=== PATIENT | female | born 1955 ===

== ENCOUNTER 2016-10-08 18:59 | Inpatient (IN) | payer MEDICAID ==
[2016-10-08] MEDS ORDERED: Sodium Chloride 0.9% 1,000 ML IV STA (19:53)
[2016-10-08 20:33] LABS: BASO # 0.02 K/mm3 (0.0-2.0); BASO % 0.1 % (0.0-3.0); EOS % 0.1 % (1.5-5.0); GRAN # 13.27 (1.4-6.5); GRAN % 78.9 % (50.0-68.0); HEMOGLOBIN 15.3 gm/dL (12.0-16.0); LYMPH # 2.3 (1.2-3.4); LYMPH % 13.4 % (22.0-35.0); MEAN CORPUSCULAR HEMOGLOBIN 31.7 pg (25.0-35.0); MEAN CORPUSCULAR HGB CONC 35.3 g/dl (31.0-37.0); MEAN PLATELET VOLUME 10.2 fl (7.0-11.0); MONO # 1.3 (0.1-0.6); MONO % 7.5 % (1.0-6.0); PLATELET COUNT 267 10^3/uL (120.0-450.0); RBC 4.82 10^6/uL (3.5-6.1); RED CELL DISTRIBUTION WIDTH 12.4 % (11.5-14.5); WHITE BLOOD COUNT 16.8 10^3/ul (4.5-11.0)
--- NOTE | 2016-10-08 21:20 | ED PDOC ---
Arrival/HPI - General Chief Complaint: Headache Time Seen by Provider: 10/08/16 19:40 Historian: Patient - History of Present Illness Narrative History of Present Illness (Text): 10/08/16 19:50 Mari Pruitt is a 61 year old female, whose past medical history includes cholecystectomy, who presents to the Emergency department complaining of right flank pain. Patient also complaining of associated nausea, fever, and headache since yesterday. Patient denies any chest pain, shortness of breath, vomiting, diarrhea, urinary symptoms, neck pain, dizziness, or any other complaints. Symptom Onset: Gradual Symptom Course: Unchanged Activities at Onset: Rest, Light Context: Home Past Medical History - Provider Review Nursing Documentation Reviewed: Yes - Infectious Disease Hx of Infectious Diseases: None - Tetanus Immunization Tetanus Immunization: Unknown - Cardiac Hx Cardiac Disorders: Yes Hx Hypertension: Yes - Endocrine/Metabolic Hx Endocrine Disorders: Yes Hx Hypothyroidism: Yes - Hematological/Oncological Hx Blood Disorders: No - Integumentary Hx Dermatological Disorder: No - Musculoskeletal/Rheumatological Hx Musculoskeletal Disorders: Yes Hx Arthritis: Yes Hx Osteoporosis: Yes - Gastrointestinal Hx Gastrointestinal Disorders: No - Genitourinary/Gynecological Hx Genitourinary Disorders: No - Psychiatric Hx Psychophysiologic Disorder: No Hx Substance Use: No - Past Surgical History Past Surgical History: No Previous - Surgical History Hx Cholecystectomy: Yes Hx Tubal Ligation: Yes - Anesthesia Hx Anesthesia: No Hx Anesthesia Reactions: No Hx Malignant Hyperthermia: No - Suicidal Assessment Feels Threatened In Home Enviroment: No Family/Social History - Physician Review Nursing Documentation Reviewed: Yes Family/Social History: Unknown Family HX Smoking Status: Never Smoked Hx Alcohol Use: No Hx Substance Use: No Hx Substance Use Treatment: No Allergies/Home Meds Allergies/Adverse Reactions: Allergies Iodinated Contrast- Oral and IV Dye Allergy (Verified 10/08/16 23:17) ANAPHYLAXIS moxifloxacin [From Avelox] Allergy (Verified 10/08/16 19:21) ANAPHYLAXIS Home Medications: Home Meds Medication Instructions Recorded Confirmed Aspirin [Adult Low Dose Aspirin EC] 81 mg PO DAILY 10/08/16 10/08/16 Levothyroxine [Synthroid] 88 mcg PO DAILY 10/08/16 10/08/16 Metoprolol Tartrate [Lopressor] 150 mg PO BID 10/08/16 10/08/16 Ondansetron HCl [Zofran] 4 mg PO Q12H PRN 10/08/16 10/08/16 hydroCHLOROthiazide [Hydrodiuril] 25 mg PO DAILY 10/08/16 10/08/16 Review of Systems - Physician Review All systems were reviewed & negative as marked: Yes - Review of Systems Constitutional: Fevers Eyes: Normal ENT: Normal Respiratory: Normal. absent: SOB, Cough Cardiovascular: Normal. absent: Chest Pain Gastrointestinal: Nausea. absent: Vomiting Genitourinary Female: Normal. absent: Dysuria, Frequency, Hematuria, Urine Output Changes Musculoskeletal: Back Pain. absent: Neck Pain Skin: Normal. absent: Rash Neurological: Headache. absent: Dizziness Endocrine: Normal Hemo/Lymphatic: Normal Psychiatric: Normal Physical Exam Vital Signs Reviewed: Yes Vital Signs Temp Pulse Resp BP Pulse Ox 10/08/16 23:27 88 18 98 10/08/16 23:14 100 F H 96 H 16 99 10/08/16 19:20 100.7 F H 91 H 16 140/90 97 Temperature: Febrile Blood Pressure: Normal Pulse: Regular Respiratory Rate: Normal Appearance: Positive for: Well-Appearing, Non-Toxic, Comfortable Pain Distress: None Mental Status: Positive for: Alert and Oriented X 3 - Systems Exam Head: Present: Atraumatic, Normocephalic Pupils: Present: PERRL Extroacular Muscles: Present: EOMI Conjunctiva: Present: Normal Mouth: Present: Moist Mucous Membranes Neck: Present: Normal Range of Motion Respiratory/Chest: Present: Clear to Auscultation, Good Air Exchange. No: Respiratory Distress, Accessory Muscle Use Cardiovascular: Present: Regular Rate and Rhythm, Normal S1, S2. No: Murmurs Abdomen: Present: Normal Bowel Sounds. No: Tenderness, Distention, Peritoneal Signs Back: Present: Normal Inspection. No: CVA Tenderness, Midline Tenderness, Paraspinal Tenderness Upper Extremity: Present: Normal Inspection. No: Cyanosis, Edema Lower Extremity: Present: Normal Inspection. No: Edema Neurological: Present: GCS=15, CN II-XII Intact, Speech Normal Skin: Present: Warm, Dry, Normal Color. No: Rashes Psychiatric: Present: Alert, Oriented x 3, Normal Insight, Normal Concentration Medical Decision Making ED Course and Treatment: 10/08/16 19:50 Impression: 61 year old female complaining of right flank pain, fever, headache, and nausea. Plan: -- CT Abdomen and Pelvis w/o contrast -- Labs -- Urinalysis, urine cultures -- IV fluids -- Toradol -- Zofran -- Reassess and disposition Progress Notes: 10/08/16 22:32 Reviewed radiology, CT Abdomen and Pelvis shows: 1. Findings compatible with acute diverticulitis of ascending colon. Recommend endoscopy following resolution. 2. Incidental/non-acute findings are described above 10/08/16 22:40 Case discussed with biomedical analytical scientist application chemist, who is aware and agrees with plan. Case discussed with Dr. Reid, who is aware and agrees with plan. Accepts pt in to hospitalist service. Pt will be admitted to [facility] for diverticulitis of the colon. Pt is no acute distress. Discussed results and hospital admission plan with pt, who is aware and verbalizes understanding. - Lab Interpretations Microbiology Results: Microbiology Results 10/08/16 21:20 Urine,Clean Catch Urine Culture - Final No Growth (<1,000 CFU/ML) 10/08/16 22:15 Blood-Venous Blood Culture - Preliminary NO GROWTH AFTER 24 HOURS Lab Results: 10/08/16 19:45 Lab Results 10/08/16 21:20: Urine Color Yellow, Urine Appearance Clear, Urine pH 8.0, Ur Specific Wanda 1.010, Urine Protein Negative, Urine Glucose (UA) Negative, Urine Ketones Negative, Urine Blood Trace-intact H, Urine Nitrate Negative, Urine Bilirubin Negative, Urine Urobilinogen 2.0 H, Ur Leukocyte Esterase Small H, Urine RBC Negative, Urine WBC 2 - 5, Ur Epithelial Cells 1 - 3, Urine Bacteria Few 10/08/16 19:45: WBC 16.8 H D, RBC 4.82, Hgb 15.3, Hct 43.4, MCV 90.0, MCH 31.7, MCHC 35.3, RDW 12.4, Plt Count 267, MPV 10.2, Gran % 78.9 H, Lymph % (Auto) 13.4 L, Irion % (Auto) 7.5 H, Eos % (Auto) 0.1 L, Baso % (Auto) 0.1, Gran # 13.27 H, Lymph # 2.3, Irion # 1.3 H, Eos # 0.0, Baso # 0.02 I have reviewed the lab results: Yes - RAD Interpretation Narrative RAD Interpretations (Text): CT Abdomen and Pelvis shows: Limitations: Motion artifact - mild. Lower thorax: Minimal atelectasis. Small LEFT breast calcification. ABDOMEN: Liver: Fatty infiltration. Gallbladder and bile ducts: Cholecystectomy. No ductal dilation. Pancreas: Unremarkable. No ductal dilation. Spleen: No splenomegaly. Adrenals: No mass. Kidneys and ureters: Probable LEFT renal cyst. Too small to characterize lesion within RIGHT kidney. No renal calculi. No hydronephrosis. Stomach and bowel: Scattered diverticula within colon. Mild mural thickening short segment of ascending colon. [id number] stranding within adjacent fat. No obstruction. Appendix: Normal caliber. No inflammation. PELVIS: Bladder: Unremarkable. No stones. Reproductive: Unremarkable as visualized. ABDOMEN and PELVIS: Intraperitoneal space: No significant fluid collection. No free air. Bones/joints: Probable faint bone island. No acute fracture. Soft tissues: Unremarkable. Vasculature: Minimal atherosclerotic disease. No aneurysm. Lymph nodes: No pathologically enlarged lymph nodes. IMPRESSION: 1. Findings compatible with acute diverticulitis of ascending colon. Recommend endoscopy following resolution. 2. Incidental/non-acute findings are described above Radiology Orders: 10/08/16 19:53 ABD & PELVIS W/O PO OR IV CONT [CT] Stat Aircraft Landing Gear Inspector: Radiologist - Medication Orders Current Medication Orders: Discontinued Medications Aspirin (Ecotrin) 81 mg PO DAILY [facility] Last Admin: 10/10/16 09:39 Dose: 81 mg Hydralazine HCl (Apresoline) 10 mg IVP Q6 PRN PRN Reason: Systolic Blood Pressure Hydrochlorothiazide (Hydrodiuril) 25 mg PO DAILY [facility] Last Admin: 10/10/16 09:39 Dose: 25 mg Sodium Chloride (Sodium Chloride 0.9%) 1,000 mls @ 100 mls/hr IV .Q10H STA Stop: 10/09/16 05:52 Last Admin: 10/08/16 20:33 Dose: 100 mls/hr Metronidazole (Flagyl) 500 mg in 100 mls @ 100 mls/hr IVPB STAT STA PRN Reason: Protocol Stop: 10/08/16 23:38 Last Admin: 10/09/16 00:01 Dose: 100 mls/hr Piperacillin Sod/Tazobactam Sod (Zosyn 3.375 In Ns 100ml) 100 mls @ 200 mls/hr IVPB STAT STA PRN Reason: Protocol Stop: 10/08/16 23:07 Last Admin: 10/08/16 23:13 Dose: 200 mls/hr Metronidazole (Flagyl) 500 mg in 100 mls @ 100 mls/hr IVPB Q8 MIRYAM PRN Reason: Protocol Last Admin: 10/10/16 06:30 Dose: 100 mls/hr Sodium Chloride (Sodium Chloride 0.9%) 1,000 mls @ 100 mls/hr IV .Q10H [facility] Last Admin: 10/09/16 20:00 Dose: 100 mls/hr Ceftriaxone Sodium (Rocephin 1 Gram Ivpb) 1 gm in 100 mls @ 100 mls/hr IVPB DAILY [facility] PRN Reason: Protocol Last Admin: 10/10/16 09:39 Dose: 100 mls/hr Ketorolac Tromethamine (Toradol) 30 mg IVP STAT STA Stop: 10/08/16 19:54 Last Admin: 10/08/16 20:34 Dose: 30 mg Re-Assess: PRISCILLA Pain Assessment Document 10/08/16 23:30 MLS (Rec: 10/09/16 00:20 MLS [id number]) Pain Reassessment Is this a pain reassessment? Yes Sleep Is patient sleeping during reassessment? No Presence of Pain Presence of Pain Yes Pain Scale Used Pain Scale Used Numeric Location Left, Right or Bilateral Right Pain Location Body Site Abdomen Description Description Constant Intensity of Pain at present 5 Levothyroxine Sodium (Synthroid) 88 mcg PO ACB [facility] Last Admin: 10/10/16 08:04 Dose: 88 mcg Metoprolol Tartrate (Lopressor) 150 mg PO BID [facility] Metoprolol Tartrate (Lopressor) 50 mg PO BID [facility] Last Admin: 10/10/16 09:39 Dose: 50 mg Morphine Sulfate (Morphine) 2 mg IVP Q4H PRN PRN Reason: Pain, moderate (4-7) Morphine Sulfate (Morphine) 4 mg IVP Q4H PRN PRN Reason: Pain, severe (8-10) Ondansetron HCl (Zofran Inj) 4 mg IVP STAT STA Stop: 10/08/16 19:54 Last Admin: 10/08/16 20:33 Dose: 4 mg Ondansetron HCl (Zofran Inj) 4 mg IVP Q4H PRN PRN Reason: Nausea/Vomiting Pantoprazole Sodium (Protonix Inj) 40 mg IVP DAILY [facility] Last Admin: 10/10/16 09:40 Dose: 40 mg Potassium Chloride (Potassium Chloride Oral Soln) 40 meq PO ONCE ONE Stop: 10/09/16 00:56 Last Admin: 10/09/16 01:07 Dose: 40 meq Potassium Chloride (K-Dur 20 Meq Er Tab) 40 meq PO STAT STA Stop: 10/09/16 11:11 Last Admin: 10/09/16 11:31 Dose: 40 meq - Scribe Statement The provider has reviewed the documentation as recorded by the Mylesibsteven Lainez All medical record entries made by the Adriano were at my direction and personally dictated by me. I have reviewed the chart and agree that the record accurately reflects my personal performance of the history, physical exam, medical decision making, and the department course for this patient. I have also personally directed, reviewed, and agree with the discharge instructions and disposition. Disposition/Present on Arrival - Present on Arrival Any Indicators Present on Arrival: No History of DVT/PE: No History of Uncontrolled Diabetes: No Urinary Catheter: No History of Decub. Ulcer: No History Surgical Site Infection Following: None - Disposition Have Diagnosis and Disposition been Completed?: Yes Diagnosis: Diverticulitis Disposition: HOSPITALIZED Disposition Time: 22:40 Condition: GOOD
[2016-10-08 21:29] LABS: URINE BILIRUBIN NEGATIVE (NEGATIVE); URINE BLOOD TRACE-INTACT (NEGATIVE); URINE GLUCOSE (UA) NEGATIVE (NEGATIVE); URINE LEUKOCYTE ESTERASE SMALL Leu/uL (NEGATIVE); URINE NITRATE NEGATIVE (NEGATIVE); URINE PROTEIN NEGATIVE mg/dL (<30 mg/dL)
[2016-10-08 21:50] LABS: URINE APPEARANCE CLEAR (CLEAR); URINE COLOR YELLOW (YELLOW)
[2016-10-08 22:04] LABS: URINE BACTERIA FEW (NEG); URINE RBC NEGATIVE /hpf (0-2)
--- NOTE | 2016-10-08 22:32 | CT ---
EXAM: CT Abdomen and Pelvis Without Intravenous Contrast CLINICAL HISTORY: 61 years old, female; Pain; Abdominal pain; Flank; Right; Prior surgery; Surgery type: Cholecystectomy - tubal ligation; Additional info: Rt flank pain TECHNIQUE: Axial computed tomography images of the abdomen and pelvis without intravenous contrast. This CT exam was performed using one or more of the following dose reduction techniques: automated exposure control, adjustment of the mA and/or kV according to patient size, and/or use of iterative reconstruction technique. Coronal and sagittal reformatted images were created and reviewed. COMPARISON: US - ABDOMEN COMPLETE 05/18/2016 10:02:25 AM FINDINGS: Limitations: Motion artifact - mild. Lower thorax: Minimal atelectasis. Small LEFT breast calcification. ABDOMEN: Liver: Fatty infiltration. Gallbladder and bile ducts: Cholecystectomy. No ductal dilation. Pancreas: Unremarkable. No ductal dilation. Spleen: No splenomegaly. Adrenals: No mass. Kidneys and ureters: Probable LEFT renal cyst. Too small to characterize lesion within RIGHT kidney. No renal calculi. No hydronephrosis. Stomach and bowel: Scattered diverticula within colon. Mild mural thickening short segment of ascending colon. [id number] stranding within adjacent fat. No obstruction. Appendix: Normal caliber. No inflammation. PELVIS: Bladder: Unremarkable. No stones. Reproductive: Unremarkable as visualized. ABDOMEN and PELVIS: Intraperitoneal space: No significant fluid collection. No free air. Bones/joints: Probable faint bone island. No acute fracture. Soft tissues: Unremarkable. Vasculature: Minimal atherosclerotic disease. No aneurysm. Lymph nodes: No pathologically enlarged lymph nodes. IMPRESSION: 1. Findings compatible with acute diverticulitis of ascending colon. Recommend endoscopy following resolution. 2. Incidental/non-acute findings are described above.
[2016-10-08] MEDS ORDERED: Piperacillin/Tazobact 3.375 gm 100 ML IVPB STA (22:38)
[2016-10-08] MEDS ORDERED: metroNIDAZOLE IV 500 mg/100 ml 500 MG/100 ML BAG IVPB STA (22:39)
[2016-10-08 23:20] LABS: ALB/GLOB RATIO 1.3 (1.1-1.8); ALBUMIN 4.4 g/dL (3.0-4.8); ALT/SGPT 50 U/L (7-56); AST/SGOT 38 U/L (15-39); BLOOD UREA NITROGEN 10 mg/dL (7-21); CALCIUM 9.7 mg/dL (8.4-10.5); GFR AFRICAN-AMERICAN > 60; GFR NON-AFRICAN AMERICAN > 60
[2016-10-08] MEDS ORDERED: Morphine 2 mg/ml ISec IVP PRN (23:44)
[2016-10-08] MEDS ORDERED: Ciprofloxacin 400mg/200ml D5W 400 MG/200 ML BAG IVPB SCH (23:45)
[2016-10-08] MEDS ORDERED: Morphine 4 mg/ml ISec IVP PRN (23:49)
[2016-10-09] MEDS: Sodium Chloride 0.9% 1,000 ML IV SCH ×3 (00:07→20:00)
[2016-10-09] MEDS: metroNIDAZOLE IV 500 mg/100 ml 500 MG/100 ML BAG IVPB SCH ×4 (00:07→22:37)
[2016-10-09] MEDS ORDERED: Potassium Chloride 40 mEq/30 ml LIQ UD PO ONE (00:55)
[2016-10-09 01:04] VITALS: BMI 28.3
--- NOTE | 2016-10-09 02:21 | CP.PCM.HP ---
Addendum entered and electronically signed by RONAL LAM DO 10/09/16 03:25 : Hypokalemia -K+ was found to be 3.2 -patient refused IV potassium supplementation -given 40meq in oral solution Original Note: <RONAL LAM - Last Filed: 10/09/16 02:37> History of Present Illness - History of Present Illness History of Present Illness: CC: Abdominal Pain HPI: Mrs. Pruitt is a 61 year old estonian speaking female with a past medical history significant for HTN, osteoarthritis, osteoporosis and hypothyroid who presented to the ED for lower quadrant abdominal pain. Patients daughter provided translation for HPI. Patient reports that she has been experiencing the pain since yesterday (10/07) afternoon while she was resting at home. She describes the pain as sharp and localizes it to the lower quadrants bilaterally. She also endorses nausea associated with her pain as well as subjective fever and chills once overnight. She reports that she has been having difficulties with constipation for the past week. She was seen at her PMD's office on Monday and was given "a powder" to help with BM's. She did not take this powder as she had a BM that same day. Her last BM was on the morning of 10/07 and patient reports that it was difficult to pass. She has struggled off and on with constipation in the past as well but has never had this pain before. Patient also reports that she has not had a colonoscopy in the past. In the ED, a CT abdomen/pelvis showed diverticulitis in the ascending colon and she was found to have a WBC of 16.8. Currently, patient reports that the pain is unchanged in both intensity and quality. Patient denies any headache, dizziness, changes in vision, weight loss , chest pain, shortness of breath, vomiting, diarrhea, hematochezia, urinary symptoms, or any other complaints. PMH: HTN, OA, osteoporosis, and hypothyroidism PSH: Cholecystectomy, Tubal ligation FMH: None per patient Social: Denies tobacco, alcohol or illicit drug use and lives at home with her Allergies: Iodine and moxifloxacin Home Meds: HCTZ, Synthroid, Lopressor, and ASA PMD: [place] Present on Admission - Present on Admission Any Indicators Present on Admission: No Review of Systems - Review of Systems Review of Systems: Please refer to HPI Past Patient History - Infectious Disease Hx of Infectious Diseases: None - Tetanus Immunizations Tetanus Immunization: Unknown - Past Social History Smoking Status: Never Smoked - CARDIAC Hx Cardiac Disorders: Yes Hx Hypercholesterolemia: Yes Hx Hypertension: Yes - ENDOCRINE/METABOLIC Hx Endocrine Disorders: Yes Hx Hypothyroidism: Yes - HEMATOLOGICAL/ONCOLOGICAL Hx Blood Disorders: No - INTEGUMENTARY Hx Dermatological Problems: No - MUSCULOSKELETAL/RHEUMATOLOGICAL Hx Musculoskeletal Disorders: Yes Hx Arthritis: Yes Hx Falls: No - GASTROINTESTINAL Hx Gastrointestinal Disorders: No - GENITOURINARY/GYNECOLOGICAL Other/Comment: tubal ligation - PSYCHIATRIC Hx Psychophysiologic Disorder: No Hx Substance Use: No - SURGICAL HISTORY Hx Surgeries: Yes Hx Cholecystectomy: Yes - ANESTHESIA Hx Anesthesia: No Hx Anesthesia Reactions: No Hx Malignant Hyperthermia: No Meds Allergies/Adverse Reactions: Allergies Allergy/AdvReac Type Severity Reaction Status Date / Time Iodinated Contrast- Oral and Allergy ANAPHYLAXIS Verified 10/08/16 23:17 IV Dye moxifloxacin [From Avelox] Allergy ANAPHYLAXIS Verified 10/08/16 19:21 Physical Exam - Constitutional Appears: No Acute Distress - Head Exam Head Exam: NORMAL INSPECTION, NORMOCEPHALIC - Eye Exam Eye Exam: EOMI, Normal appearance - ENT Exam ENT Exam: Mucous Membranes Moist, Normal Exam - Neck Exam Neck exam: Positive for: Full Rom. Negative for: Lymphadenopathy - Respiratory Exam Respiratory Exam: Clear to Auscultation Bilateral, NORMAL BREATHING PATTERN. absent: Rales, Rhonchi, Wheezes, Respiratory Distress - Cardiovascular Exam Cardiovascular Exam: REGULAR RHYTHM, RRR, +S1, +S2. absent: Tachycardia, Systolic Murmur - GI/Abdominal Exam GI & Abdominal Exam: Normal Bowel Sounds, Soft, Tenderness. absent: Distended, Firm, Guarding, Rebound Additional comments: TTP in bilateral lower quadrants - Exam Exam: absent: Bladder Distension - Extremities Exam Extremities exam: Positive for: normal capillary refill, pedal pulses present. Negative for: calf tenderness, pedal edema - Neurological Exam Neurological exam: Alert, Oriented x3 - Psychiatric Exam Psychiatric exam: Normal Affect, Normal Mood - Skin Skin Exam: Dry, Intact, Normal Color, Warm Results - Vital Signs Recent Vital Signs: Last Vital Signs Temp 98.8 F 10/08/16 23:50 Pulse 83 10/08/16 23:50 Resp 20 10/08/16 23:50 BP 145/93 H 10/08/16 23:50 Pulse Ox 98 08/05/17 23:50 - Labs Result Diagrams: 10/08/16 19:45 10/08/16 22:45 Labs: Laboratory Results - last 24 hr 10/08/16 22:45 Sodium 139 Potassium 3.2 L Chloride 98 Carbon Dioxide 27 Anion Gap 17 BUN 10 Creatinine 0.8 Est GFR ( Amer) > 60 Est GFR (Non-Af Amer) > 60 Random Glucose 109 Calcium 9.7 Total Bilirubin 2.5 H AST 38 ALT 50 Alkaline Phosphatase 69 Total Protein 7.8 Albumin 4.4 Globulin 3.4 Albumin/Globulin Ratio 1.3 Assessment & Plan - Assessment and Plan (Free Text) Assessment: 61 year old estonian speaking female with a past medical history significant for HTN, osteoarthritis, osteoporosis and hypothyroid who presented to the ED for lower quadrant abdominal pain Plan: 1. Diverticulitis of Ascending Colon -see CT report -started on Flagyl and Rocephin with noted allergies to Moxifloxacin -Morphine 2mg and 4mg Q4H PRN for moderate and severe pain -IVF: NS at 100mls/hr -NPO Diet; holding all PO medications including home meds -Zofran PRN for N/V -blood cultures pending -cont monitoring leukocytosis with daily CBC's -will recommend colonoscopy 6 weeks after discharge 2. History of HTN -Hydralazine PRN for SBP >165mmHG 3. GI/DVT Prophylaxis -Protonix/scd's Patient seen and case discussed with attending, Dr. Reid. - Date & Time Date: 10/09/16 Time: 12:05 <Jeanette WALKER,Deyvi - Last Filed: 10/10/16 09:28> Results - Vital Signs Recent Vital Signs: Last Vital Signs Temp 99.4 F 10/09/16 17:01 Pulse 90 10/09/16 17:56 Resp 20 10/09/16 17:01 BP 158/99 H 10/09/16 17:56 Pulse Ox 99 10/09/16 17:01 - Labs Result Diagrams: 10/10/16 07:15 10/10/16 07:15 Labs: Laboratory Results - last 24 hr 10/10/16 10/10/16 07:15 07:15 WBC 9.2 D RBC 4.40 Hgb 13.6 Hct 40.4 MCV 91.8 MCH 30.9 MCHC 33.7 RDW 12.5 Plt Count 241 MPV 9.7 Gran % 71.7 H Lymph % (Auto) 20.7 L Carroll % (Auto) 6.2 H Eos % (Auto) 1.2 L Baso % (Auto) 0.2 Gran # 6.59 H Lymph # 1.9 Carroll # 0.6 Eos # 0.1 Baso # 0.02 Sodium 142 Potassium 3.8 Chloride 104 Carbon Dioxide 25 Anion Gap 17 BUN 10 Creatinine 0.8 Est GFR ( Amer) > 60 Est GFR (Non-Af Amer) > 60 Random Glucose 78 Calcium 9.6 Total Bilirubin 1.5 H AST 34 ALT 40 Alkaline Phosphatase 64 Total Protein 7.4 Albumin 4.2 Globulin 3.2 Albumin/Globulin Ratio 1.3 Attending/Attestation - Attestation I have personally seen and examined this patient.: Yes I have fully participated in the care of the patient.: Yes I have reviewed all pertinent clinical information: Yes Notes (Text): -I agree with the above H&P completed by the resident physician with the following additions and/or changes: The patient is a 61 year old woman with a history of HTN and OA, who is admitted for acute diverticulitis. She will receive empiric IV Ceftriaxone and Flagyl. She will also be kept NPO (with IVF's) for bowel rest. We will use PRN IV Hydralazine for BP control while the patient remains NPO.
[2016-10-09 06:46] LABS: ALB/GLOB RATIO 1.3 (1.1-1.8); ALT/SGPT 50 U/L (7-56); AST/SGOT 31 U/L (15-39); BLOOD UREA NITROGEN 11 mg/dL (7-21); CALCIUM 8.9 mg/dL (8.4-10.5); GFR AFRICAN-AMERICAN > 60; GFR NON-AFRICAN AMERICAN > 60
[2016-10-09 06:48] LABS: BASO # 0.01 K/mm3 (0.0-2.0); BASO % 0.1 % (0.0-3.0); EOS # 0.1 (0.0-0.7); EOS % 0.4 % (1.5-5.0); GRAN # 8.75 (1.4-6.5); GRAN % 72.9 % (50.0-68.0); HEMOGLOBIN 13.3 gm/dL (12.0-16.0); LYMPH # 2.2 (1.2-3.4); LYMPH % 18.3 % (22.0-35.0); MEAN CELL VOLUME 91.4 fL (80.0-105.0); MEAN CORPUSCULAR HGB CONC 33.9 g/dl (31.0-37.0); MEAN PLATELET VOLUME 9.7 fl (7.0-11.0); MONO % 8.3 % (1.0-6.0); PLATELET COUNT 227 10^3/uL (120.0-450.0); RBC 4.29 10^6/uL (3.5-6.1); RED CELL DISTRIBUTION WIDTH 12.5 % (11.5-14.5)
[2016-10-09] MEDS: cefTRIAXone 1 gm 1 GM/100 ML BAG IVPB SCH (10:20)
[2016-10-09] MEDS ORDERED: Potassium Chloride 20 mEq ER Tab PO STA (11:10)
[2016-10-09] MEDS ORDERED: Levothyroxine 100 MCG TAB PO SCH (13:15)
[2016-10-09 17:02] VITALS: RESP 20; TEMP 99.4; O2SAT 99
[2016-10-10] MEDS: metroNIDAZOLE IV 500 mg/100 ml 500 MG/100 ML BAG IVPB SCH (06:30)
[2016-10-10] MEDS ORDERED: Levothyroxine 88 MCG TAB PO SCH (07:30)
[2016-10-10 07:43] LABS: BASO # 0.02 K/mm3 (0.0-2.0); BASO % 0.2 % (0.0-3.0); EOS # 0.1 (0.0-0.7); EOS % 1.2 % (1.5-5.0); GRAN # 6.59 (1.4-6.5); GRAN % 71.7 % (50.0-68.0); HEMOGLOBIN 13.6 gm/dL (12.0-16.0); LYMPH # 1.9 (1.2-3.4); LYMPH % 20.7 % (22.0-35.0); MEAN CELL VOLUME 91.8 fL (80.0-105.0); MEAN CORPUSCULAR HEMOGLOBIN 30.9 pg (25.0-35.0); MEAN CORPUSCULAR HGB CONC 33.7 g/dl (31.0-37.0); MEAN PLATELET VOLUME 9.7 fl (7.0-11.0); MONO # 0.6 (0.1-0.6); MONO % 6.2 % (1.0-6.0); PLATELET COUNT 241 10^3/uL (120.0-450.0); RED CELL DISTRIBUTION WIDTH 12.5 % (11.5-14.5); WHITE BLOOD COUNT 9.2 10^3/ul (4.5-11.0)
[2016-10-10 08:04] LABS: ALB/GLOB RATIO 1.3 (1.1-1.8); ALBUMIN 4.2 g/dL (3.0-4.8); ALT/SGPT 40 U/L (7-56); AST/SGOT 34 U/L (15-39); BLOOD UREA NITROGEN 10 mg/dL (7-21); CALCIUM 9.6 mg/dL (8.4-10.5); GFR AFRICAN-AMERICAN > 60; GFR NON-AFRICAN AMERICAN > 60
[2016-10-10] MEDS: cefTRIAXone 1 gm 1 GM/100 ML BAG IVPB SCH (09:39)
[2016-10-10 09:44] VITALS: BP 142/95; PULSE 69
--- NOTE | 2016-10-10 11:55 | CP.PCM.DIS ---
<Azalia Munoz - Last Filed: 10/10/16 16:08> Provider - Provider Date of Admission: 10/08/16 22:39 Attending physician: Kishor Singer MD Primary care physician: Xiomy Negron DO Time Spent in preparation of Discharge (in minutes): 31 Diagnosis - Discharge Diagnosis (1) Diverticulitis Status: Acute Hospital Course - Lab Results Lab Results: Micro Results 10/08/16 22:45 Blood-Venous Blood Culture - Preliminary NO GROWTH AFTER 24 HOURS Most Recent Lab Values WBC 9.2 10^3/ul (4.5-11.0) D 10/10/16 07:15 RBC 4.40 10^6/uL (3.5-6.1) 10/10/16 07:15 Hgb 13.6 gm/dL (12.0-16.0) 10/10/16 07:15 Hct 40.4 % (36.0-48.0) 10/10/16 07:15 MCV 91.8 fL (80.0-105.0) 10/10/16 07:15 MCH 30.9 pg (25.0-35.0) 10/10/16 07:15 MCHC 33.7 g/dl (31.0-37.0) 10/10/16 07:15 RDW 12.5 % (11.5-14.5) 10/10/16 07:15 Plt Count 241 10^3/uL (120.0-450.0) 10/10/16 07:15 MPV 9.7 fl (7.0-11.0) 10/10/16 07:15 Gran % 71.7 % (50.0-68.0) H 10/10/16 07:15 Lymph % (Auto) 20.7 % (22.0-35.0) L 10/10/16 07:15 [place] % (Auto) 6.2 % (1.0-6.0) H 10/10/16 07:15 Eos % (Auto) 1.2 % (1.5-5.0) L 10/10/16 07:15 Baso % (Auto) 0.2 % (0.0-3.0) 10/10/16 07:15 Gran # 6.59 (1.4-6.5) H 10/10/16 07:15 Lymph # 1.9 (1.2-3.4) 10/10/16 07:15 [place] # 0.6 (0.1-0.6) 10/10/16 07:15 Eos # 0.1 (0.0-0.7) 10/10/16 07:15 Baso # 0.02 K/mm3 (0.0-2.0) 10/10/16 07:15 Sodium 142 mmol/L (132-148) 10/10/16 07:15 Potassium 3.8 mmol/L (3.6-5.0) 10/10/16 07:15 Chloride 104 mmol/L (98-107) 10/10/16 07:15 Carbon Dioxide 25 mmol/L (21-33) 10/10/16 07:15 Anion Gap 17 (10-20) 10/10/16 07:15 BUN 10 mg/dL (7-21) 10/10/16 07:15 Creatinine 0.8 mg/dL (0.5-1.4) 10/10/16 07:15 Est GFR ( Amer) > 60 10/10/16 07:15 Est GFR (Non-Af Amer) > 60 10/10/16 07:15 Random Glucose 78 mg/dL (70-110) 10/10/16 07:15 Calcium 9.6 mg/dL (8.4-10.5) 10/10/16 07:15 Total Bilirubin 1.5 mg/dL (0.2-1.3) H 10/10/16 07:15 AST 34 U/L (15-39) 10/10/16 07:15 ALT 40 U/L (7-56) 10/10/16 07:15 Alkaline Phosphatase 64 U/L (38-133) 10/10/16 07:15 Total Protein 7.4 g/dL (5.8-8.3) 10/10/16 07:15 Albumin 4.2 g/dL (3.0-4.8) 10/10/16 07:15 Globulin 3.2 gm/dL 10/10/16 07:15 Albumin/Globulin Ratio 1.3 (1.1-1.8) 10/10/16 07:15 Urine Color Yellow (YELLOW) 10/08/16 21:20 Urine Appearance Clear (CLEAR) 10/08/16 21:20 Urine pH 8.0 (4.7-8.0) 10/08/16 21:20 Ur Specific [place] 1.010 (1.005-1.035) 10/08/16 21:20 Urine Protein Negative mg/dL (<30 mg/dL) 10/08/16 21:20 Urine Glucose (UA) Negative mg/dL (NEGATIVE) 10/08/16 21:20 Urine Ketones Negative mg/dL (NEGATIVE) 10/08/16 21:20 Urine Blood Trace-intact (NEGATIVE) H 10/08/16 21:20 Urine Nitrate Negative (NEGATIVE) 10/08/16 21:20 Urine Bilirubin Negative (NEGATIVE) 10/08/16 21:20 Urine Urobilinogen 2.0 E.U./dL (<1 E.U./dL) H 10/08/16 21:20 Ur Leukocyte Esterase Small Cirilo/uL (NEGATIVE) H 10/08/16 21:20 Urine RBC Negative /hpf (0-2) 10/08/16 21:20 Urine WBC 2 - 5 /hpf (0-6) 10/08/16 21:20 Ur Epithelial Cells 1 - 3 /hpf (0-5) 10/08/16 21:20 Urine Bacteria Few (NEG) 10/08/16 21:20 - Hospital Course Hospital Course: 61 year old female with a past medical history significant for HTN, osteoarthritis, osteoporosis and hypothyroid who presented to the ED for lower quadrant abdominal pain. Patients daughter provided translation for HPI. Patient reports that she has been experiencing the pain since yesterday (10/07) afternoon while she was resting at home. She describes the pain as sharp and localizes it to the lower quadrants bilaterally. She also endorses nausea associated with her pain as well as subjective fever and chills once overnight. She reports that she has been having difficulties with constipation for the past week. She was seen at her PMD's office on Monday and was given "a powder" to help with BM's. She did not take this powder as she had a BM that same day. Her last BM was on the morning of 10/07 and patient reports that it was difficult to pass. She has struggled off and on with constipation in the past as well but has never had this pain before. Patient also reports that she has not had a colonoscopy in the past. In the ED, a CT abdomen/pelvis showed diverticulitis in the ascending colon and she was found to have a WBC of 16.8. Patient was admitted for observation. Patient was started on Rocephin and IV flagyl with IV fluid hydration. Diet was advanced as tolerated. Labs were monitored, WBC normalized. Patient was initially hypokalemic, K+ was repleted. For HTN, patient was on HCTZ and Metoprolol 50mg BID. Patient was started on her home dose of Synthroid for hypothyroidism. Urine cx and Blood cx were negative. Patient was medically stable on day of discharge. She reported that her symptoms had improved, tolerated regular diet, and had a BM. Patient was discharged on PO augmentin x 10 days. Patient to follow up with PMD and GI within 1 week. Will need outpatient colonoscopy in 6 weeks. All questions and concerns were addressed. Discharge Exam - Head Exam Head Exam: NORMAL INSPECTION, NORMOCEPHALIC - Eye Exam Eye Exam: EOMI, Normal appearance Pupil Exam: NORMAL ACCOMODATION - ENT Exam ENT Exam: Mucous Membranes Moist - Neck Exam Neck exam: Full Rom - Respiratory Exam Respiratory Exam: Clear to PA & Lateral, NORMAL BREATHING PATTERN. absent: Rales, Rhonchi, Wheezes - Cardiovascular Exam Cardiovascular Exam: REGULAR RHYTHM, +S1, +S2 - GI/Abdominal Exam GI & Abdominal Exam: Normal Bowel Sounds, Soft, Tenderness. absent: Firm, Rebound, Rigid Additional comments: RLQ tenderness to palpation - Extremities Exam Extremities exam: pedal pulses present - Neurological Exam Neurological exam: Alert, CN II-XII Intact, Oriented x3 - Psychiatric Exam Psychiatric exam: Normal Affect, Normal Mood - Skin Skin Exam: Normal Color, Warm Discharge Plan - Discharge Medications Prescriptions: Amoxicillin/Clavulanate [Augmentin 875 MG-125 MG] 1 tab PO BID #20 tab - Follow Up Plan Condition: GOOD Disposition: HOME/ ROUTINE Instructions: Diverticulosis (DC) Additional Instructions: Patient is clear for discharge home. Patient to take Augmentin PO BID x 10 days , Follow up with PMD within 1 week. Will need outpatient referral for GI to schedule colonoscopy in 6 weeks. Referrals: Xiomy Negron DO [Primary Care Provider] - <Kishor Singer - Last Filed: 10/10/16 17:05> Provider - Provider Date of Admission: 10/08/16 22:39 Attending physician: Kishor Singer MD [facility] - Lab Results Lab Results: Micro Results 10/08/16 22:45 Blood-Venous Blood Culture - Preliminary NO GROWTH AFTER 24 HOURS Most Recent Lab Values WBC 9.2 10^3/ul (4.5-11.0) D 10/10/16 07:15 RBC 4.40 10^6/uL (3.5-6.1) 10/10/16 07:15 Hgb 13.6 gm/dL (12.0-16.0) 10/10/16 07:15 Hct 40.4 % (36.0-48.0) 10/10/16 07:15 MCV 91.8 fL (80.0-105.0) 10/10/16 07:15 MCH 30.9 pg (25.0-35.0) 10/10/16 07:15 MCHC 33.7 g/dl (31.0-37.0) 10/10/16 07:15 RDW 12.5 % (11.5-14.5) 10/10/16 07:15 Plt Count 241 10^3/uL (120.0-450.0) 10/10/16 07:15 MPV 9.7 fl (7.0-11.0) 10/10/16 07:15 Gran % 71.7 % (50.0-68.0) H 10/10/16 07:15 Lymph % (Auto) 20.7 % (22.0-35.0) L 10/10/16 07:15 [place] % (Auto) 6.2 % (1.0-6.0) H 10/10/16 07:15 Eos % (Auto) 1.2 % (1.5-5.0) L 10/10/16 07:15 Baso % (Auto) 0.2 % (0.0-3.0) 10/10/16 07:15 Gran # 6.59 (1.4-6.5) H 10/10/16 07:15 Lymph # 1.9 (1.2-3.4) 10/10/16 07:15 [place] # 0.6 (0.1-0.6) 10/10/16 07:15 Eos # 0.1 (0.0-0.7) 10/10/16 07:15 Baso # 0.02 K/mm3 (0.0-2.0) 10/10/16 07:15 Sodium 142 mmol/L (132-148) 10/10/16 07:15 Potassium 3.8 mmol/L (3.6-5.0) 10/10/16 07:15 Chloride 104 mmol/L (98-107) 10/10/16 07:15 Carbon Dioxide 25 mmol/L (21-33) 10/10/16 07:15 Anion Gap 17 (10-20) 10/10/16 07:15 BUN 10 mg/dL (7-21) 10/10/16 07:15 Creatinine 0.8 mg/dL (0.5-1.4) 10/10/16 07:15 Est GFR ( Amer) > 60 10/10/16 07:15 Est GFR (Non-Af Amer) > 60 10/10/16 07:15 Random Glucose 78 mg/dL (70-110) 10/10/16 07:15 Calcium 9.6 mg/dL (8.4-10.5) 10/10/16 07:15 Total Bilirubin 1.5 mg/dL (0.2-1.3) H 10/10/16 07:15 AST 34 U/L (15-39) 10/10/16 07:15 ALT 40 U/L (7-56) 10/10/16 07:15 Alkaline Phosphatase 64 U/L (38-133) 10/10/16 07:15 Total Protein 7.4 g/dL (5.8-8.3) 10/10/16 07:15 Albumin 4.2 g/dL (3.0-4.8) 10/10/16 07:15 Globulin 3.2 gm/dL 10/10/16 07:15 Albumin/Globulin Ratio 1.3 (1.1-1.8) 10/10/16 07:15 Urine Color Yellow (YELLOW) 10/08/16 21:20 Urine Appearance Clear (CLEAR) 10/08/16 21:20 Urine pH 8.0 (4.7-8.0) 10/08/16 21:20 Ur Specific [place] 1.010 (1.005-1.035) 10/08/16 21:20 Urine Protein Negative mg/dL (<30 mg/dL) 10/08/16 21:20 Urine Glucose (UA) Negative mg/dL (NEGATIVE) 10/08/16 21:20 Urine Ketones Negative mg/dL (NEGATIVE) 10/08/16 21:20 Urine Blood Trace-intact (NEGATIVE) H 10/08/16 21:20 Urine Nitrate Negative (NEGATIVE) 10/08/16 21:20 Urine Bilirubin Negative (NEGATIVE) 10/08/16 21:20 Urine Urobilinogen 2.0 E.U./dL (<1 E.U./dL) H 10/08/16 21:20 Ur Leukocyte Esterase Small Cirilo/uL (NEGATIVE) H 10/08/16 21:20 Urine RBC Negative /hpf (0-2) 10/08/16 21:20 Urine WBC 2 - 5 /hpf (0-6) 10/08/16 21:20 Ur Epithelial Cells 1 - 3 /hpf (0-5) 10/08/16 21:20 Urine Bacteria Few (NEG) 10/08/16 21:20 Attending/Attestation - Attestation I have personally seen and examined this patient.: Yes I have fully participated in the care of the patient.: Yes I have reviewed all pertinent clinical information, including history, physical exam and plan: Yes Notes (Text): 10/10/16 17:03 61 year old female with past medical history of hypertension and hypothyroidism who is admitted with diverticulitis. She was started on analgesics and antibiotics. Her symptoms improved and her diet was advanced. Her leukocytosis has improved. Patient is discharged home to follow up with her PMD. Continue with antibiotics as prescribed. Recommended elective colonoscopy in 6 weeks. Kishor Singer MD Hospitalist.
== END 2016-10-10 13:38 | disposition home or self-care (01) | DRG 182 ==
LOC: ED 18:59 → ERH 22:39 → 3RNO 23:34
PROVIDERS: ADMIT Internal Medicine; ATTEND Internal Medicine
DX: K57.32 Diverticulitis of large intestine without perforation or abscess without bleeding (principal); D72.829 Elevated white blood cell count, unspecified; E87.6 Hypokalemia; I10 Essential (primary) hypertension; E03.9 Hypothyroidism, unspecified; M81.0 Age-related osteoporosis without current pathological fracture; M19.90 Unspecified osteoarthritis, unspecified site; K59.00 Constipation, unspecified; Z79.82 Long term (current) use of aspirin; Z90.49 Acquired absence of other specified parts of digestive tract

== ENCOUNTER 2017-03-21 08:30 | Emergency (ER) | payer MEDICAID ==
[2017-03-21 09:02] VITALS: TEMP 101.7; O2SAT 100; BMI 27.8
[2017-03-21] MEDS ORDERED: DiphenhydrAMINE 50 mg/ml Inj IVP STA (09:15)
[2017-03-21] MEDS ORDERED: Sodium Chloride 0.9% 500 ML IV STA ×2 (09:16→10:29)
--- NOTE | 2017-03-21 09:38 | ED PDOC ---
Arrival/HPI <Lona Craig - Last Filed: 03/21/17 13:18> <Susi Yee - Last Filed: 03/21/17 22:10> - General Chief Complaint: Abdominal Pain Time Seen by Provider: 03/21/17 09:12 - History of Present Illness Narrative History of Present Illness (Text): 03/21/17 09:38 62F presents with 3 day history of abdominal pain, nausea, body aches, headache. Patient vomited yellow phelgm 2 times today. Patient also admits to a non-productive cough. Patient states the pain is in mid-epigastric region and also in upper quadrants. PMH: HLD, HTN, Hypothyroidism PSH: Cholecystectomy (8 years ago) Social history: lives with family at home. No smoking, no ETOH use, no illicit drugs (Lona Craig) Past Medical History - Infectious Disease Hx of Infectious Diseases: None - Tetanus Immunization Tetanus Immunization: Unknown - Cardiac Hx Cardiac Disorders: Yes Hx Hypertension: Yes - Pulmonary Hx Respiratory Disorders: No - Neurological Hx Neurological Disorder: No - HEENT Hx HEENT Disorder: No - Renal Hx Renal Disorder: No - Endocrine/Metabolic Hx Endocrine Disorders: Yes Hx Hypothyroidism: Yes - Hematological/Oncological Hx Blood Disorders: No - Integumentary Hx Dermatological Disorder: No - Musculoskeletal/Rheumatological Hx Musculoskeletal Disorders: Yes Hx Arthritis: Yes Hx Osteoporosis: Yes - Gastrointestinal Hx Gastrointestinal Disorders: No - Genitourinary/Gynecological Hx Genitourinary Disorders: No - Psychiatric Hx Psychophysiologic Disorder: No Hx Substance Use: No - Past Surgical History Past Surgical History: No Previous - Surgical History Hx Cholecystectomy: Yes Hx Tubal Ligation: Yes - Anesthesia Hx Anesthesia: No Hx Anesthesia Reactions: No Hx Malignant Hyperthermia: No - Suicidal Assessment Feels Threatened In Home Enviroment: No <Lona Craig - Last Filed: 03/21/17 13:18> Family/Social History Family/Social History: Unknown Family HX Smoking Status: Never Smoked Hx Alcohol Use: No Hx Substance Use: No Hx Substance Use Treatment: No <Lona Craig - Last Filed: 03/21/17 13:18> Allergies/Home Meds <Lona Craig - Last Filed: 03/21/17 13:18> <Susi Yee - Last Filed: 03/21/17 22:10> Allergies/Adverse Reactions: Allergies Iodinated Contrast- Oral and IV Dye Allergy (Verified 03/21/17 09:08) ANAPHYLAXIS moxifloxacin [From Avelox] Allergy (Verified 03/21/17 09:08) ANAPHYLAXIS Home Medications: Home Meds Medication Instructions Recorded Confirmed Aspirin [Adult Low Dose Aspirin EC] 81 mg PO DAILY 10/08/16 03/21/17 Levothyroxine [Synthroid] 88 mcg PO DAILY 10/08/16 03/21/17 Metoprolol Tartrate [Lopressor] 150 mg PO BID 10/08/16 03/21/17 hydroCHLOROthiazide [Hydrodiuril] 25 mg PO DAILY 10/08/16 03/21/17 Meclizine [Antivert] 25 mg PO BID 03/21/17 03/21/17 Ondansetron HCl [Zofran] 4 mg PO Q12 PRN 03/21/17 03/21/17 Review of Systems - Review of Systems Constitutional: Fatigue Eyes: absent: Vision Changes, Photophobia, Eye Pain ENT: absent: Hearing Changes, Tinnitus, TMJ Pain Respiratory: Cough. absent: SOB, Sputum Cardiovascular: absent: Chest Pain, Palpitations, Edema Gastrointestinal: Abdominal Pain, Nausea, Vomiting. absent: Stool Changes, Constipation, Diarrhea, Hematochezia, Hematemesis, Anorexia, Food Intolerance Musculoskeletal: Normal. absent: Joint Swelling, Myalgias Skin: Normal. absent: Rash, Pruritis, Skin Lesions Neurological: Headache. absent: Dizziness, Focal Weakness Endocrine: absent: Diaphoresis, Polyuria, Polydipsia Psychiatric: absent: Anxiety, Depression, Suicidal Ideation <Eng,Lona - Last Filed: 03/21/17 13:18> Physical Exam Temperature: Febrile Blood Pressure: Hypertensive Pulse: Regular Respiratory Rate: Normal Appearance: Positive for: Uncomfortable Pain Distress: Moderate Mental Status: Positive for: Alert and Oriented X 3. No: Confused, Agitated, Lethargic - Systems Exam Head: Present: Atraumatic, Normocephalic Pupils: Present: PERRL Extroacular Muscles: Present: EOMI Conjunctiva: Present: Normal Ears: Present: Normal. No: Erythema Mouth: Present: Moist Mucous Membranes Nose (External): Present: Atraumatic. No: Abrasion, Contusion, Laceration Nose (Internal): Present: Normal Inspection. No: No Active Bleeding, Moist, Engorged Neck: Present: Normal Range of Motion. No: JVD, Lymphadenopathy Respiratory/Chest: Present: Clear to Auscultation. No: Respiratory Distress, Accessory Muscle Use Cardiovascular: Present: Regular Rate and Rhythm, Normal S1, S2. No: Murmurs Abdomen: Present: Tenderness, Guarding. No: Peritoneal Signs, Rebound, McBurney 's Point Tender, Rovsing's Sign Present Upper Extremity: Present: Normal Inspection, Capillary Refill < 2s. No: Edema Lower Extremity: Present: Normal Inspection, Capillary Refill < 2 s. No: Edema Skin: Present: Warm, Dry, Normal Color. No: Rashes Psychiatric: Present: Alert, Oriented x 3, Normal Insight <Lona Craig - Last Filed: 03/21/17 13:18> Vital Signs Temp Pulse Resp BP Pulse Ox 03/21/17 13:00 79 18 148/89 100 03/21/17 11:47 87 18 153/94 H 100 03/21/17 11:12 88 18 151/88 H 100 03/21/17 09:01 101.7 F H 90 19 162/93 H 100 Medical Decision Making Re-evaluation Time: 13:18 Reassessment Condition: Re-examined, Improved - Lab Interpretations I have reviewed the lab results: Yes Interpretation: Abnormal lab values (lactate 2.2, f/u repeat lactate) - RAD Interpretation Nutrition Internship: ED Physician, Radiologist - EKG Interpretation Interpreted by ED Physician: Yes Type: 12 lead EKG <Lona Craig - Last Filed: 03/21/17 13:18> <Susi Yee - Last Filed: 03/21/17 22:10> ED Course and Treatment: 03/21/17 11:27 CXR EKG CBC CMP VBG shock and repeat Abdominal CXR for obstruction 03/21/17 11:32 03/21/17 13:19 03/21/17 13:19 Patient re-examined, symptoms of nausea resolved after maalox, zofran, pepcid, fluid bolus (1L). Patient ate bread and drank berto evelyn without issues. patient to be discharged home 20 mg Pepcid bid #40 zofran odt #9 [id number] q8h x3 days (Kiara,Lona) 03/21/17 10:04 Mari Pruitt is a 62 year old female who presents today to the emergency department complaining of abdominal pain, nausea, headache, and body aches. In agreement with resident note, which includes further HPI details. Patient was seen and evaluated with resident, came up with plan and treatment together. (Susi Yee) - Lab Interpretations Lab Results: 03/21/17 09:20 03/21/17 09:20 Lab Results 03/21/17 13:00: pO2 75 H, VBG pH 7.38, VBG pCO2 45.0, VBG HCO3 26.6, VBG Total CO2 28.0, VBG O2 Sat (Calc) 97.7 H, VBG Base Excess 1.0, VBG Potassium 3.6, Sodium 138.0, Chloride 101.0, Glucose 122 H, Lactate 2.2 H, FiO2 21.0, Venous Blood Potassium 3.6 03/21/17 12:00: Urine Color Yellow, Urine Appearance Clear, Urine pH 8.0, Ur Specific [place] 1.015, Urine Protein Trace H, Urine Glucose (UA) Negative, Urine Ketones 15 H, Urine Blood Negative, Urine Nitrate Negative, Urine Bilirubin Negative, Urine Urobilinogen 2.0 H, Ur Leukocyte Esterase Negative, Urine RBC 0 - 2, Urine WBC 1 - 3, Ur Epithelial Cells 3 - 4 03/21/17 09:20: pO2 31, VBG pH 7.43, VBG pCO2 46.0, VBG HCO3 30.5 H, VBG Total CO2 31.9 H, VBG O2 Sat (Calc) 69.5 H, VBG Base Excess 5.3 H, VBG Potassium 3.3 L , Sodium 136.0, Chloride 99.0, Glucose 103, Lactate 2.2 H, FiO2 21.0, Venous Blood Potassium 3.3 L 03/21/17 09:20: Sodium 138, Chloride 95 L, Potassium 3.2 L, Carbon Dioxide 27, Anion Gap 19, BUN 12, Creatinine 0.9, Est GFR ( Amer) > 60, Est GFR (Non- Af Amer) > 60, Random Glucose 101, Calcium 10.4, Total Bilirubin 1.7 H, AST 61 H , ALT 66 H, Alkaline Phosphatase 84, Lactate Dehydrogenase 539, Total Creatine Kinase 61, Troponin I < 0.01, Total Protein 9.0 H, Albumin 5.1 H, Globulin 3.9, Albumin/Globulin Ratio 1.3, Triglycerides 180 H, Cholesterol 230 H, LDL Cholesterol Direct 135 H, HDL Cholesterol 41, Amylase 50, Lipase 57 03/21/17 09:20: PT 12.2, INR 1.06, APTT 30.5 03/21/17 09:20: WBC 8.6, RBC 5.14, Hgb 15.8, Hct 46.0, MCV 89.5, MCH 30.7, MCHC 34.3, RDW 12.3, Plt Count 234, MPV 9.8, Gran % 81.7 H, Lymph % (Auto) 9.3 L, [place] % (Auto) 8.3 H, Eos % (Auto) 0.5 L, Baso % (Auto) 0.2, Gran # 6.99 H, Lymph # 0.8 L, [place] # 0.7 H, Eos # 0.0, Baso # 0.02 - RAD Interpretation Radiology Orders: 03/21/17 09:12 ABD 2 VIEWS (FLAT/UP OR DECUB) [RAD] Stat 03/21/17 09:13 CHEST PORTABLE [RAD] Stat - Medication Orders Current Medication Orders: Discontinued Medications Acetaminophen (Tylenol 325mg Tab) 975 mg PO STAT STA Stop: 03/21/17 09:17 Last Admin: 03/21/17 09:42 Dose: 975 mg MAR Pain/Vitals Document 03/21/17 09:42 SF (Rec: 03/21/17 09:42 SF [id number] Pain Reassessment Is This A Pain ReAssessment? Yes Sleep Is patient sleeping during reassessment? No Presence of Pain Presence of Pain Yes Pain Scale Used Pain Scale Used Numeric Location Pain Location Body Site Abdomen Al Hydrox/Mg Hydrox/Simethicone (Maalox Plus 30 Ml) 30 ml PO STAT STA Stop: 03/21/17 11:32 Last Admin: 03/21/17 11:50 Dose: 30 ml Diphenhydramine HCl (Benadryl) 25 mg IVP STAT STA Stop: 03/21/17 09:16 Last Admin: 03/21/17 09:41 Dose: 25 mg IVP Administration Document 03/21/17 09:41 SF (Rec: 03/21/17 09:41 SF [email or web address] Charges for Administration # of IVP Administrations 1 Famotidine (Pepcid) 20 mg IVP STAT STA Stop: 03/21/17 11:32 Last Admin: 03/21/17 11:51 Dose: 20 mg IVP Administration Document 03/21/17 11:51 HI (Rec: 03/21/17 11:51 HI [id number]) Charges for Administration # of IVP Administrations 1 Sodium Chloride (Sodium Chloride 0.9%) 500 mls @ 999 mls/hr IV .Q31M STA Stop: 03/21/17 09:46 Last Admin: 03/21/17 09:44 Dose: 999 mls/hr eMAR Start Stop Document 03/21/17 09:44 SF (Rec: 03/21/17 09:44 [id number]) Intravenous Solution Start Date 03/21/17 Start Time 09:44 End Date 03/21/17 End time 10:15 Total Infusion Time 31 Metoclopramide HCl 20 mg/ (Sodium Chloride) 54 mls @ 108 mls/hr IVP .Q30M ONE Stop: 03/21/17 10:29 Last Admin: 03/21/17 09:42 Dose: 108 mls/hr IVP Administration Document 03/21/17 09:42 SF (Rec: 03/21/17 09:42 SF [email or web address] Charges for Administration # of IVP Administrations 1 Sodium Chloride (Sodium Chloride 0.9%) 500 mls @ 999 mls/hr IV .Q31M STA Stop: 03/21/17 10:59 Last Admin: 03/21/17 10:30 Dose: 999 mls/hr eMAR Start Stop Document 03/21/17 10:30 SF (Rec: 03/21/17 11:55 [email or web address]) Intravenous Solution Start Date 03/21/17 Start Time 10:30 End Date 03/21/17 End time 11:00 Total Infusion Time 30 Magnesium Sulfate/Dextrose (Magnesium Sulfate 1 Gm/100 Ml D5w) 1 gm in 100 mls @ 100 mls/hr IVPB ONCE ONE Stop: 03/21/17 11:40 Last Admin: 03/21/17 11:51 Dose: 100 mls/hr eMAR Start Stop Document 03/21/17 11:51 HI (Rec: 03/21/17 11:51 HI [id number]) Intravenous Solution Start Date 03/21/17 Start Time 11:51 Ondansetron HCl (Zofran Inj) 4 mg IVP STAT STA Stop: 03/21/17 11:54 Last Admin: 03/21/17 12:14 Dose: 4 mg IVP Administration Document 03/21/17 12:14 HI (Rec: 03/21/17 12:15 DC [id number]) Charges for Administration # of IVP Administrations 1 Potassium Chloride (Potassium Chloride Oral Soln) 40 meq PO STAT STA Stop: 03/21/17 10:42 Last Admin: 03/21/17 11:50 Dose: 40 meq - PA / [employer]PLE [employer]ING [employer]PERVISOR / Resident Statement / has reviewed & agrees with the documentation as recorded. <Susi Yee - Last Filed: 03/21/17 22:10> Disposition/Present on Arrival - Present on Arrival Any Indicators Present on Arrival: No History of DVT/PE: No History of Uncontrolled Diabetes: No Urinary Catheter: No History of Decub. Ulcer: No History Surgical Site Infection Following: None - Disposition Have Diagnosis and Disposition been Completed?: Yes Disposition Time: 13:25 Patient Plan: Discharge <Lona Craig - Last Filed: 03/21/17 13:18> <Susi Yee - Last Filed: 03/21/17 22:10> - Disposition Diagnosis: Gastroenteritis Disposition: HOME/ ROUTINE Condition: FAIR Print Language: AFGHAN Additional Instructions: increase daily fluid intake, take medications as directed return to ED if symptoms of nausea, vomiting, abdominal pain worsen or fever. follow up with primary care doctor Prescriptions: Aluminum Hydroxide/Magnesium H [Maalox 30 ml] 30 ml PO Q8H 3 Days udc Famotidine [Pepcid] 20 mg PO BID #40 tab Ondansetron ODT [Zofran ODT] 4 mg PO Q8H #9 odt Referrals: Xiomy Negron DO [Primary Care Provider] - Follow up with primary Forms: [employer] (Kazakh)
[2017-03-21 10:22] LABS: VENOUS BLOOD GAS BASE EXCESS 5.3 mmol/L (0.0-2.0); VENOUS BLOOD GAS PO2 31 mm/Hg (30-55); VENOUS BLOOD PH 7.43 (7.32-7.43)
[2017-03-21 10:28] LABS: BASO # 0.02 K/mm3 (0.0-2.0); BASO % 0.2 % (0.0-3.0); EOS % 0.5 % (1.5-5.0); GRAN # 6.99 (1.4-6.5); GRAN % 81.7 % (50.0-68.0); HEMOGLOBIN 15.8 g/dL (12.0-16.0); LYMPH # 0.8 (1.2-3.4); LYMPH % 9.3 % (22.0-35.0); MEAN CELL VOLUME 89.5 fl (80.0-105.0); MEAN CORPUSCULAR HEMOGLOBIN 30.7 pg (25.0-35.0); MEAN CORPUSCULAR HGB CONC 34.3 g/dl (31.0-37.0); MEAN PLATELET VOLUME 9.8 fl (7.0-11.0); MONO # 0.7 (0.1-0.6); MONO % 8.3 % (1.0-6.0); RBC 5.14 10^6/uL (3.5-6.1); RED CELL DISTRIBUTION WIDTH 12.3 % (11.5-14.5); WHITE BLOOD COUNT 8.6 10^3/ul (4.5-11.0)
[2017-03-21 10:36] LABS: INR 1.06 (0.93-1.08); PARTIAL THROMBOPLASTIN TIME 30.5 Seconds (25.1-36.5); PROTHROMBIN TIME 12.2 SECONDS (9.4-12.5)
[2017-03-21 10:37] LABS: ALB/GLOB RATIO 1.3 (1.1-1.8); ALBUMIN 5.1 g/dL (3.0-4.8); ALT/SGPT 66 U/L (7-56); AMYLASE 50 U/L (35-125); AST/SGOT 61 U/L (14-36); BLOOD UREA NITROGEN 12 mg/dL (7-21); CALCIUM 10.4 mg/dL (8.4-10.5); GFR AFRICAN-AMERICAN > 60; GFR NON-AFRICAN AMERICAN > 60; HDL CHOLESTEROL 41 mg/dL (29-60); LIPASE 57 U/L (23-300)
[2017-03-21] MEDS ORDERED: Potassium Chloride 40 mEq/30 ml LIQ UD PO STA (10:41)
[2017-03-21] MEDS ORDERED: Magnesium Sulfate 1 gm in D5W 1 GM/100 ML BAG IVPB ONE (10:41)
--- NOTE | 2017-03-21 10:41 | CARD ---
APPROVED REPORT EKG Measurement Heart [id number] <Conclusion> Normal sinus rhythm ST & T wave abnormality, consider lateral ischemia Abnormal ECG
[2017-03-21 10:43] LABS: TROPONIN I < 0.01 ng/mL
[2017-03-21 10:44] LABS: LDL CHOLESTEROL 135 mg/dL (0-129)
[2017-03-21 11:12] VITALS: RESP 18
--- NOTE | 2017-03-21 11:23 | RAD ---
HISTORY: examine gas pattern COMPARISON: No prior. FINDINGS: BOWEL: Normal. No obstruction. No free air. BONES: Normal. OTHER FINDINGS: Right upper quadrant surgical clips noted status post cholecystectomy. IMPRESSION: No active disease.
--- NOTE | 2017-03-21 11:30 | RAD ---
HISTORY: rout med exam COMPARISON: 07/21/2013 FINDINGS: LUNGS: No active pulmonary disease. PLEURA: No significant pleural effusion identified, no pneumothorax apparent. CARDIOVASCULAR: Normal. OSSEOUS STRUCTURES: No significant abnormalities. VISUALIZED UPPER ABDOMEN: Normal. OTHER FINDINGS: None. IMPRESSION: No active disease.
[2017-03-21] MEDS ORDERED: Alum-Mag Hydrox-Simethicone Susp (30 mL) PO STA (11:31)
[2017-03-21 12:06] LABS: URINE BILIRUBIN NEGATIVE (NEGATIVE); URINE BLOOD NEGATIVE (NEGATIVE); URINE GLUCOSE (UA) NEGATIVE (NEGATIVE); URINE LEUKOCYTE ESTERASE NEGATIVE Leu/uL (NEGATIVE); URINE NITRATE NEGATIVE (NEGATIVE); URINE PROTEIN TRACE mg/dL (<30 mg/dL)
[2017-03-21 12:23] LABS: URINE COLOR YELLOW (YELLOW)
[2017-03-21 12:24] LABS: URINE APPEARANCE CLEAR (CLEAR); URINE RBC 0 - 2 /hpf (0-2)
[2017-03-21 13:10] LABS: VENOUS BLOOD GAS PO2 75 mm/Hg (30-55); VENOUS BLOOD PH 7.38 (7.32-7.43)
[2017-03-21 13:11] VITALS: BP 148/89; PULSE 79
== END 2017-03-21 13:48 | disposition home or self-care (01) ==
LOC: ED 08:30
DX: K52.9 Noninfective gastroenteritis and colitis, unspecified (principal); I10 Essential (primary) hypertension; Z90.49 Acquired absence of other specified parts of digestive tract
CPT/HCPCS: 71045; 74019; 80053; 80061; 81001; 82150; 82550; 82803; 83615; 83690; 84484; 85025; 85610; 85730; 87040; 87086; 93005; 96361; 96374; 96375; 99284; J1200; J2405; J2765; J3475; J3480; J7040

== ENCOUNTER 2017-05-05 04:35 | Inpatient (IN) | payer MEDICAID ==
--- NOTE | 2017-05-05 04:51 | ED PDOC ---
Arrival/HPI - General Time Seen by Provider: 05/05/17 04:37 Historian: Patient - History of Present Illness Narrative History of Present Illness (Text): 05/05/17 04:49 A 62 year old female, whose past medical history includes HTN, osteoarthritis, osteoporosis and hypothyroid, cholecystectomy, presents to the emergency department complaining of several day duration left lower quadrant abdominal pain. The patient denies fevers, chills, headache, dizziness, chest pain, shortness of breath, dyspnea on exertion, cough, nausea, vomiting, diarrhea, back pain, neck pain, urinary/bowel changes, or any other complaint. PMD: Dr. Negron Time/Duration: Other (Several Days) Symptom Onset: Sudden Symptom Course: Unchanged Activities at Onset: Rest, Light Context: Home Past Medical History - Provider Review Nursing Documentation Reviewed: Yes - Infectious Disease Hx of Infectious Diseases: None - Tetanus Immunization Tetanus Immunization: Unknown - Cardiac Hx Cardiac Disorders: Yes Hx Hypertension: Yes - Pulmonary Hx Respiratory Disorders: No - Neurological Hx Neurological Disorder: No - HEENT Hx HEENT Disorder: No - Renal Hx Renal Disorder: No - Endocrine/Metabolic Hx Endocrine Disorders: Yes Hx Hypothyroidism: Yes - Hematological/Oncological Hx Blood Disorders: No - Integumentary Hx Dermatological Disorder: No - Musculoskeletal/Rheumatological Hx Musculoskeletal Disorders: Yes Hx Arthritis: Yes Hx Osteoporosis: Yes - Gastrointestinal Hx Gastrointestinal Disorders: No - Genitourinary/Gynecological Hx Genitourinary Disorders: No - Psychiatric Hx Psychophysiologic Disorder: No Hx Substance Use: No - Past Surgical History Past Surgical History: No Previous - Surgical History Hx Cholecystectomy: Yes Hx Tubal Ligation: Yes - Anesthesia Hx Anesthesia: No Hx Anesthesia Reactions: No Hx Malignant Hyperthermia: No - Suicidal Assessment Feels Threatened In Home Enviroment: No Family/Social History - Physician Review Nursing Documentation Reviewed: Yes Family/Social History: No Known Family HX Smoking Status: Never Smoked Hx Alcohol Use: No Hx Substance Use: No Hx Substance Use Treatment: No Allergies/Home Meds Allergies/Adverse Reactions: Allergies Iodinated Contrast- Oral and IV Dye Allergy (Verified 05/05/17 04:53) ANAPHYLAXIS moxifloxacin [From Avelox] Allergy (Verified 05/05/17 04:53) ANAPHYLAXIS Home Medications: Home Meds Medication Instructions Recorded Confirmed Aspirin [Adult Low Dose Aspirin EC] 81 mg PO DAILY 10/08/16 05/05/17 Levothyroxine [Synthroid] 88 mcg PO DAILY 10/08/16 05/05/17 Metoprolol Tartrate [Lopressor] 150 mg PO BID 10/08/16 05/05/17 hydroCHLOROthiazide [Hydrodiuril] 25 mg PO DAILY 10/08/16 05/05/17 Review of Systems - Physician Review All systems were reviewed & negative as marked: Yes - Review of Systems Constitutional: absent: Fevers, Night Sweats Respiratory: absent: SOB, Cough Cardiovascular: absent: Chest Pain, FORD Gastrointestinal: Abdominal Pain (LLQ Pain). absent: Stool Changes, Diarrhea, Nausea, Vomiting Genitourinary Female: absent: Urine Output Changes Musculoskeletal: absent: Back Pain, Neck Pain Neurological: absent: Headache, Dizziness Physical Exam Vital Signs Reviewed: Yes Vital Signs Temp Pulse Resp BP Pulse Ox 05/05/17 04:48 97.6 F 80 15 157/88 H 97 Temperature: Afebrile Blood Pressure: Hypertensive Pulse: Regular Respiratory Rate: Normal Appearance: Positive for: Well-Appearing, Non-Toxic, Comfortable Pain Distress: None Mental Status: Positive for: Alert and Oriented X 3 - Systems Exam Head: Present: Atraumatic, Normocephalic Pupils: Present: PERRL Extroacular Muscles: Present: EOMI Conjunctiva: Present: Normal Mouth: Present: Moist Mucous Membranes Neck: Present: Normal Range of Motion Respiratory/Chest: Present: Clear to Auscultation, Good Air Exchange. No: Respiratory Distress, Accessory Muscle Use Cardiovascular: Present: Regular Rate and Rhythm, Normal S1, S2. No: Murmurs Abdomen: Present: Tenderness (Tender to palpation of LLQ ), Normal Bowel Sounds. No: Distention, Peritoneal Signs Back: Present: Normal Inspection Upper Extremity: Present: Normal Inspection. No: Cyanosis, Edema Lower Extremity: Present: Normal Inspection. No: Edema Neurological: Present: GCS=15, CN II-XII Intact, Speech Normal Skin: Present: Warm, Dry, Normal Color. No: Rashes Psychiatric: Present: Alert, Oriented x 3, Normal Insight, Normal Concentration Medical Decision Making ED Course and Treatment: 05/05/17 04:52 Impression: A 62 year old female presents to the emergency department complaining of left lower quadrant abdominal pain for the past few days. Plan: -- EKG -- Abdomen/Pelvis CT -- Labs -- Urinalysis -- Dilaudid, Protonix, IV Fluids, and Zofran -- Reassess and disposition Progress Notes: 05/05/17 05:08 EKG: Ordered, reviewed, and independently interpreted the EKG. Rate : 80 BPM Rhythm : NSR Interpretation : Non- specific ST-T segments. - Medication Orders Current Medication Orders: Sodium Chloride (Sodium Chloride 0.9%) 1,000 mls @ 100 mls/hr IV .Q10H STA Stop: 05/05/17 14:58 Discontinued Medications Hydromorphone HCl (Dilaudid) 2 mg IVP STAT STA Stop: 05/05/17 05:01 Ondansetron HCl (Zofran Inj) 4 mg IVP STAT STA Stop: 05/05/17 05:00 Pantoprazole Sodium (Protonix Inj) 40 mg IVP STAT STA Stop: 05/05/17 05:08 - Scribe Statement The provider has reviewed the documentation as recorded by the Scribe Penelope Diaz Provider Scribe Attestation: All medical record entries made by the Scribe were at my direction and personally dictated by me. I have reviewed the chart and agree that the record accurately reflects my personal performance of the history, physical exam, medical decision making, and the department course for this patient. I have also personally directed, reviewed, and agree with the discharge instructions and disposition. Disposition/Present on Arrival - Present on Arrival History of DVT/PE: No History of Uncontrolled Diabetes: No Urinary Catheter: No History Surgical Site Infection Following: None - Disposition Referrals: Xiomy Negron DO [Primary Care Provider] - Follow up with primary
[2017-05-05] MEDS ORDERED: Pantoprazole 40 MG in Sodium Chloride 0.9% 100 ML IV STA (04:59)
[2017-05-05] MEDS ORDERED: Sodium Chloride 0.9% 1,000 ML IV STA (04:59)
[2017-05-05] MEDS ORDERED: HYDROmorphone 2 mg/ml ISec IVP STA (05:00)
[2017-05-05 05:44] LABS: BASO # 0.02 K/mm3 (0.0-2.0); BASO % 0.2 % (0.0-3.0); EOS # 0.2 (0.0-0.7); EOS % 1.4 % (1.5-5.0); GRAN # 8.37 (1.4-6.5); GRAN % 72.9 % (50.0-68.0); HEMOGLOBIN 14.2 g/dL (12.0-16.0); LYMPH # 2.1 (1.2-3.4); LYMPH % 18.2 % (22.0-35.0); MEAN CELL VOLUME 92.4 fl (80.0-105.0); MEAN CORPUSCULAR HEMOGLOBIN 30.9 pg (25.0-35.0); MEAN CORPUSCULAR HGB CONC 33.5 g/dl (31.0-37.0); MEAN PLATELET VOLUME 9.7 fl (7.0-11.0); MONO # 0.8 (0.1-0.6); MONO % 7.3 % (1.0-6.0); RBC 4.59 10^6/uL (3.5-6.1); RED CELL DISTRIBUTION WIDTH 12.7 % (11.5-14.5); WHITE BLOOD COUNT 11.5 10^3/ul (4.5-11.0)
[2017-05-05 05:56] LABS: ALB/GLOB RATIO 1.3 (1.1-1.8); ALBUMIN 4.2 g/dL (3.0-4.8); ALT/SGPT 36 U/L (7-56); AMYLASE 50 U/L (35-125); AST/SGOT 31 U/L (14-36); BLOOD UREA NITROGEN 10 mg/dL (7-21); CALCIUM 10.1 mg/dL (8.4-10.5); GFR AFRICAN-AMERICAN > 60; GFR NON-AFRICAN AMERICAN > 60
[2017-05-05 06:08] LABS: TROPONIN I < 0.01 ng/mL
[2017-05-05 06:12] LABS: INR 1.06 (0.93-1.08); PARTIAL THROMBOPLASTIN TIME 31.1 Seconds (25.1-36.5); PROTHROMBIN TIME 12.2 SECONDS (9.4-12.5)
[2017-05-05] MEDS ORDERED: Potassium Chloride 20 mEq ER Tab PO STA (06:18)
[2017-05-05 06:33] LABS: LIPASE 63 U/L (23-300)
--- NOTE | 2017-05-05 06:39 | CT ---
EXAM: CT Abdomen and Pelvis Without Intravenous Contrast CLINICAL HISTORY: 62 years old, female; Pain; Abdominal pain; Flank; Left lower quadrant (llq); Additional info: Llq pain TECHNIQUE: Axial computed tomography images of the abdomen and pelvis without intravenous contrast. All CT scans at this facility use one or more dose reduction techniques, viz.: automated exposure control; ma/kV adjustment per patient size (including targeted exams where dose is matched to indication; i.e. head); or iterative reconstruction technique. Coronal and sagittal reformatted images were created and reviewed. COMPARISON: CT - ABD PELVIS W/O PO OR IV CONT 2016-10-08 21:33 FINDINGS: Limitations: Motion artifact - mild. Lack of intravenous contrast. Lower thorax: Minimal atelectasis. ABDOMEN: Liver: Fatty infiltration. Gallbladder and bile ducts: Cholecystectomy. No significant ductal dilation. Pancreas: Unremarkable. No ductal dilation. Spleen: No splenomegaly. Adrenals: No mass. Kidneys and ureters: No renal calculi. Probable LEFT renal cyst. Too small to characterize lesion within RIGHT kidney. No hydronephrosis. Stomach and bowel: Multiple scattered diverticula within colon. Moderate mural thickening short segment of distal descending/proximal sigmoid colon. [id number] stranding within adjacent fat. Probable under distention of transverse, ascending colon. No obstruction. Appendix: Normal caliber. No inflammation. PELVIS: Bladder: Unremarkable. No stones. Reproductive: Unremarkable as visualized. ABDOMEN and PELVIS: Intraperitoneal space: Trace free fluid within pelvis. No free air. Bones/joints: Probable bone island. No acute fracture. Soft tissues: Unremarkable. Vasculature: Minimal atherosclerotic disease. No aneurysm. Lymph nodes: No pathologically enlarged lymph nodes. IMPRESSION: 1. Findings compatible with acute diverticulitis of distal descending/proximal sigmoid colon. Recommend endoscopy following resolution. 2. Incidental/non-acute findings are described above.
[2017-05-05] MEDS ORDERED: metroNIDAZOLE IV 500 mg/100 ml 500 MG/100 ML BAG IVPB STA (06:41)
[2017-05-05] MEDS ORDERED: Morphine 4 mg/ml ISec IVP PRN (08:07)
[2017-05-05] MEDS ORDERED: Morphine 2 mg/ml ISec IVP PRN (08:12)
--- NOTE | 2017-05-05 08:15 | CP.PCM.HP ---
<Dayton Michelle - Last Filed: 05/05/17 13:46> History of Present Illness - History of Present Illness History of Present Illness: Medicine H&P for Dr. Singer CC: "abdominal pain" 62 F with past medical history that includes HTN, Osteoarthritis, osteoporosis, and hypothyroidism present [place] [facility] [place] complaint of abdominal pain. Patient states that she has had this pain for about 2 weeks and has gotten progressively worse over last 3 days. Patient states that she has had similar pain in the past. She intermittent experiences abdominal pain. She has extensive history of diverticulosis throughout her entire colon. Patient was admitted in October 2016 for ascending colon diverticulitis. Patient never followed up with Gastroenterology for colonoscopy after discharge. Patient rates pain as severe intensity. She describes pain as constant and sharp located in abdomen bilaterally (Left worse right) with radiation to left flank. Patient reports that eating/drinking/palpation exacerbates pain while nothing specifically alleviates her pain. She does not report any sick contacts or recent illnesses. Admits to chills. Denies fever, chest pain, SOB, nausea/ vomiting, diarrhea, constipation, incontinence, urinary symptoms. PMD: Dr. Negron PMH: HTN, Osteoarthritis, osteoporosis, hypothyroidism Home Meds: HCTZ, Synthroid, Lopressor, and ASA Allergies: Iodine, moxifloxacin PSH: Cholecystectomy, Tubal ligation FH: Non-contributory Social: Denies tobacco/alcohol/illicit drug use, lives at home with her Present on Admission - Present on Admission Any Indicators Present on Admission: No History of DVT/PE: No History of Uncontrolled Diabetes: No Urinary Catheter: No Decubitus Ulcer Present: No Review of Systems - Review of Systems All systems: reviewed and no additional remarkable complaints except (as per HPI ) Past Patient History - Infectious Disease Hx of Infectious Diseases: None - Tetanus Immunizations Tetanus Immunization: Unknown - Past Social History Smoking Status: Never Smoked - CARDIAC Hx Cardiac Disorders: Yes Hx Hypertension: Yes - PULMONARY Hx Respiratory Disorders: No - NEUROLOGICAL Hx Neurological Disorder: No - HEENT Hx HEENT Problems: No - RENAL Hx Chronic Kidney Disease: No - ENDOCRINE/METABOLIC Hx Endocrine Disorders: Yes Hx Hypothyroidism: Yes - HEMATOLOGICAL/ONCOLOGICAL Hx Blood Disorders: No - INTEGUMENTARY Hx Dermatological Problems: No - MUSCULOSKELETAL/RHEUMATOLOGICAL Hx Musculoskeletal Disorders: Yes Hx Arthritis: Yes Hx Osteoporosis: Yes - GASTROINTESTINAL Hx Gastrointestinal Disorders: No - GENITOURINARY/GYNECOLOGICAL Hx Genitourinary Disorders: No - PSYCHIATRIC Hx Psychophysiologic Disorder: No Hx Substance Use: No - SURGICAL HISTORY Hx Cholecystectomy: Yes Hx Tubal Ligation: Yes - ANESTHESIA Hx Anesthesia: No Hx Anesthesia Reactions: No Hx Malignant Hyperthermia: No Meds Allergies/Adverse Reactions: Allergies Allergy/AdvReac Type Severity Reaction Status Date / Time Iodinated Contrast- Oral and Allergy ANAPHYLAXIS Verified 05/05/17 13:12 IV Dye moxifloxacin [From Avelox] Allergy ANAPHYLAXIS Verified 05/05/17 13:12 Physical Exam - Constitutional Appears: No Acute Distress, Younger Than Stated Age - Head Exam Head Exam: ATRAUMATIC, NORMOCEPHALIC - Eye Exam Eye Exam: EOMI, Normal appearance Pupil Exam: PERRL - ENT Exam ENT Exam: Mucous Membranes Moist - Neck Exam Neck exam: Positive for: Full Rom. Negative for: Tenderness - Respiratory Exam Respiratory Exam: Clear to Auscultation Bilateral, NORMAL BREATHING PATTERN. absent: Accessory Muscle Use, Respiratory Distress - Cardiovascular Exam Cardiovascular Exam: REGULAR RHYTHM, +S1, +S2 - GI/Abdominal Exam GI & Abdominal Exam: Guarding (voluntary on palpation), Normal Bowel Sounds, Soft, Tenderness (LLQ>RLQ). absent: Distended, Hernia, Rebound, Rigid - Extremities Exam Extremities exam: Positive for: normal capillary refill, pedal pulses present. Negative for: calf tenderness - Back Exam Back exam: absent: CVA tenderness (L), CVA tenderness (R) - Neurological Exam Neurological exam: Alert, CN II-XII Intact, Oriented x3 - Psychiatric Exam Psychiatric exam: Normal Affect, Normal Mood - Skin Skin Exam: Dry, Intact, Normal Color, Warm Results - Vital Signs Recent Vital Signs: Last Vital Signs Temp 98.6 F 05/05/17 07:44 Pulse 76 05/05/17 07:44 Resp 18 05/05/17 07:44 BP 125/90 05/05/17 07:44 Pulse Ox 98 05/05/17 07:44 - Labs Result Diagrams: 05/05/17 05:00 05/05/17 05:00 Assessment & Plan - Assessment and Plan (Free Text) Assessment: 62 F with past medical history that includes HTN, Osteoarthritis, osteoporosis, and hypothyroidism presents for acute diverticulitis CT abd/pelvis suggestive of descending/proximal sigmoid diverticulitis Plan: Acute Diverticulitis NPO except medications GI consult, Dr. Pcikard, help appreciated NS 100 cc/hr Rocephin 1 gm IVPB daily Flagyl 500 mg IVPB Q8H Morphine 2 mg IVP Q4H PRN HTN Lopressor 150 mg PO BID HCTZ 25 mg PO daily Hypothyroidism Synthroid 88 mcg PO daily Prophylaxis SCDs Protonix 40 mg IVP daily Discussed with Dr. Enmanuel Michelle PGY1 <Kishor Singer - Last Filed: 05/05/17 14:20> Results - Vital Signs Recent Vital Signs: Last Vital Signs Temp 98.6 F 05/05/17 07:44 Pulse 100 H 05/05/17 10:06 Resp 18 05/05/17 07:44 BP 125/88 05/05/17 10:06 Pulse Ox 98 05/05/17 07:44 - Labs Result Diagrams: 05/05/17 05:00 05/05/17 05:00 Labs: Laboratory Results - last 24 hr 05/05/17 10:25 Urine Color Yellow Urine Appearance Clear Urine pH 7.5 Ur Specific [place] 1.010 Urine Protein Negative Urine Glucose (UA) Negative Urine Ketones Negative Urine Blood Negative Urine Nitrate Negative Urine Bilirubin Negative Urine Urobilinogen 0.2 Ur Leukocyte Esterase Trace H Urine RBC Negative Urine WBC 0 - 2 Ur Epithelial Cells 0 - 2 Attending/Attestation - Attestation I have personally seen and examined this patient.: Yes I have fully participated in the care of the patient.: Yes I have reviewed all pertinent clinical information: Yes Notes (Text): 05/05/17 14:17 62 year old female with past medical history of hypertension, hypothyroidism and episode of diverticulitis who presents with complaint of left sided abdominal pain. CT abd/pelvis shows descending and proximal sigmoid diverticulitis. Patient also has slight leukocytosis. Continue with NPO, IVF, analgesics and antibiotics. GI consultation is requested. Consider advancing diet to liquids later today if symptoms begin to improve. Continue with home medications for hypertension and hypothyroidism. Will replete and repeat potassium. Kishor Singer MD Hospitalist.
--- NOTE | 2017-05-05 09:56 | CARD ---
APPROVED REPORT EKG Measurement Heart [id number] NM [id number] <Conclusion> Normal sinus rhythm Nonspecific ST and T wave abnormality.
[2017-05-05] MEDS: Levothyroxine 100 MCG TAB PO SCH (10:06)
[2017-05-05 10:34] LABS: PH,URINE 7.5 (4.7-8.0); URINE BILIRUBIN NEGATIVE (NEGATIVE); URINE BLOOD NEGATIVE (NEGATIVE); URINE GLUCOSE (UA) NEGATIVE (NEGATIVE); URINE LEUKOCYTE ESTERASE TRACE Leu/uL (NEGATIVE); URINE NITRATE NEGATIVE (NEGATIVE); URINE PROTEIN NEGATIVE mg/dL (<30 mg/dL); URINE UROBILINOGEN 0.2 E.U./dL (<1 E.U./dL)
[2017-05-05] MEDS: cefTRIAXone 1 gm 1 GM/100 ML BAG IVPB SCH (10:39)
[2017-05-05 10:50] LABS: URINE APPEARANCE CLEAR (CLEAR); URINE COLOR YELLOW (YELLOW)
[2017-05-05 10:57] LABS: URINE EPITHELIAL CELLS 0 - 2 /hpf (0-5); URINE RBC NEGATIVE /hpf (0-2)
[2017-05-05 10:58] LABS: URINE WBC 0 - 2 /hpf (0-6)
[2017-05-05] MEDS: metroNIDAZOLE IV 500 mg/100 ml 500 MG/100 ML BAG IVPB SCH ×2 (13:27→22:27)
[2017-05-05 15:57] VITALS: BMI 26.9
[2017-05-05] MEDS ORDERED: Pneumococcal 23-Valent Vaccine IM ONE (15:58)
[2017-05-05] MEDS ORDERED: Influenza Vaccine 60 mcg/0.5 mL SYR (4YR UP) IM ONE (15:58)
[2017-05-06] MEDS: metroNIDAZOLE IV 500 mg/100 ml 500 MG/100 ML BAG IVPB SCH ×3 (05:57→21:56)
[2017-05-06 08:46] LABS: BASO # 0.01 K/mm3 (0.0-2.0); BASO % 0.1 % (0.0-3.0); EOS # 0.2 (0.0-0.7); GRAN # 4.81 (1.4-6.5); GRAN % 62.6 % (50.0-68.0); HEMOGLOBIN 13.7 g/dL (12.0-16.0); LYMPH # 2.2 (1.2-3.4); LYMPH % 28.9 % (22.0-35.0); MEAN CELL VOLUME 92.8 fl (80.0-105.0); MEAN CORPUSCULAR HEMOGLOBIN 30.6 pg (25.0-35.0); MEAN PLATELET VOLUME 9.8 fl (7.0-11.0); MONO # 0.5 (0.1-0.6); MONO % 6.4 % (1.0-6.0); RBC 4.47 10^6/uL (3.5-6.1); RED CELL DISTRIBUTION WIDTH 12.6 % (11.5-14.5); WHITE BLOOD COUNT 7.7 10^3/ul (4.5-11.0)
[2017-05-06 08:50] LABS: INR 1.14 (0.93-1.08); PARTIAL THROMBOPLASTIN TIME 32.8 Seconds (25.1-36.5); PROTHROMBIN TIME 13.1 SECONDS (9.4-12.5)
[2017-05-06 09:02] LABS: ALB/GLOB RATIO 1.2 (1.1-1.8); ALBUMIN 3.9 g/dL (3.0-4.8); ALT/SGPT 28 U/L (7-56); AST/SGOT 23 U/L (14-36); BLOOD UREA NITROGEN 8 mg/dL (7-21); CALCIUM 9.9 mg/dL (8.4-10.5); GFR AFRICAN-AMERICAN > 60; GFR NON-AFRICAN AMERICAN > 60
[2017-05-06] MEDS ORDERED: Potassium Chloride 20 mEq ER Tab PO ONE (09:22)
--- NOTE | 2017-05-06 09:29 | CP.PCM.PN ---
<KiaraLona - Last Filed: 05/06/17 09:46> Subjective - Date & Time of Evaluation Date of Evaluation: 05/06/17 Time of Evaluation: 09:25 - Subjective Subjective: Progress note Patient seen and examined at bedside. Patient states she's tolerating pain well. Patient is tolerating liquid diet. Her pain is a 5-7/10 today compared to yesterday which was a 10. Patient denies fever, chills, diarrhea, constipation, hematemesis, hematochezia. Objective - Vital Signs/Intake and Output Vital Signs (last 24 hours): Temp Pulse Resp BP Pulse Ox 97.6 F 63 18 124/82 99 05/06/17 07:30 05/06/17 07:30 05/06/17 07:30 05/06/17 07:30 05/06/17 07:30 Intake and Output: 05/06/17 05/06/17 06:59 18:59 Intake Total 120 Balance 120 - Medications Medications: Current Medications Acetaminophen (Tylenol 325mg Tab) 650 mg PO Q6 PRN PRN Reason: Fever >100.4 F Last Admin: 05/05/17 10:15 Dose: 650 mg Aspirin (Ecotrin) 81 mg PO DAILY [facility] Last Admin: 05/05/17 10:05 Dose: 81 mg Hydrochlorothiazide (Hydrodiuril) 25 mg PO DAILY [facility] Last Admin: 05/05/17 10:05 Dose: 25 mg Ceftriaxone Sodium (Rocephin 1 Gram Ivpb) 1 gm in 100 mls @ 100 mls/hr IVPB DAILY [facility] PRN Reason: Protocol Last Admin: 05/05/17 10:39 Dose: 100 mls/hr Metronidazole (Flagyl) 500 mg in 100 mls @ 100 mls/hr IVPB Q8 [facility] PRN Reason: Protocol Last Admin: 05/06/17 05:57 Dose: 100 mls/hr Levothyroxine Sodium (Synthroid) 88 mcg PO DAILY [facility] Last Admin: 05/05/17 10:06 Dose: 88 mcg Metoprolol Tartrate (Lopressor) 75 mg PO BID [facility] Morphine Sulfate (Morphine) 2 mg IVP Q4 PRN PRN Reason: Pain, severe (8-10) Ondansetron HCl (Zofran Inj) 4 mg IVP Q6 PRN PRN Reason: Nausea/Vomiting Pantoprazole Sodium (Protonix Inj) 40 mg IVP DAILY [facility] Potassium Chloride (K-Dur 20 Meq Er Tab) 20 meq PO ONCE ONE Stop: 05/06/17 09:23 - Labs Labs: 05/06/17 08:26 05/06/17 08:26 PT 13.1 SECONDS (9.4-12.5) H 05/06/17 08:26 INR 1.14 (0.93-1.08) H 05/06/17 08:26 APTT 32.8 Seconds (25.1-36.5) 05/06/17 08:26 - Constitutional Appears: Non-toxic, No Acute Distress - Head Exam Head Exam: ATRAUMATIC, NORMAL INSPECTION, NORMOCEPHALIC - Eye Exam Eye Exam: EOMI, Normal appearance - ENT Exam ENT Exam: Mucous Membranes Moist - Neck Exam Neck Exam: Full ROM - Respiratory Exam Respiratory Exam: Clear to Ausculation Bilateral, NORMAL BREATHING PATTERN. absent: Accessory Muscle Use - Cardiovascular Exam Cardiovascular Exam: REGULAR RHYTHM, +S1, +S2. absent: Bradycardia, Tachycardia - GI/Abdominal Exam GI & Abdominal Exam: Soft, Tenderness (left lower quadrant pain, ), Normal Bowel Sounds. absent: Pulsatile Mass, Rebound - Extremities Exam Extremities Exam: Full ROM, Normal Inspection. absent: Pedal Edema - Back Exam Back Exam: Full ROM, NORMAL INSPECTION - Neurological Exam Neurological Exam: Alert, Awake, CN II-XII Intact, Oriented x3 - Psychiatric Exam Psychiatric exam: Normal Affect, Normal Mood - Skin Skin Exam: Dry, Intact, Normal Color, Warm Assessment and Plan - Assessment and Plan (Free Text) Assessment: 62 F with past medical history that includes HTN, Osteoarthritis, osteoporosis, and hypothyroidism presents for acute diverticulitis CT abd/pelvis suggestive of descending/proximal sigmoid diverticulitis Plan: Acute Diverticulitis Diet Liquid diet, advance per GI GI consult, Dr. Pickard, help appreciated NS 100 cc/hr Rocephin 1 gm IVPB daily Flagyl 500 mg IVPB Q8H Morphine 2 mg IVP Q4H PRN HTN Lopressor 75 mg PO BID HCTZ 25 mg PO daily Hypothyroidism Synthroid 88 mcg PO daily Prophylaxis SCDs Protonix 40 mg IVP daily Discussed with Dr. Enmanuel Craig DO PGY1 <Kishor Singer - Last Filed: 05/06/17 11:02> Objective - Vital Signs/Intake and Output Vital Signs (last 24 hours): Temp Pulse Resp BP Pulse Ox 97.6 F 63 18 124/82 99 05/06/17 07:30 05/06/17 10:25 05/06/17 07:30 05/06/17 10:25 05/06/17 07:30 Intake and Output: 05/06/17 05/06/17 06:59 18:59 Intake Total 120 Balance 120 - Medications Medications: Current Medications Acetaminophen (Tylenol 325mg Tab) 650 mg PO Q6 PRN PRN Reason: Fever >100.4 F Last Admin: 05/05/17 10:15 Dose: 650 mg Aspirin (Ecotrin) 81 mg PO DAILY [facility] Last Admin: 05/06/17 10:25 Dose: 81 mg Hydrochlorothiazide (Hydrodiuril) 25 mg PO DAILY [facility] Last Admin: 05/06/17 10:28 Dose: 25 mg Ceftriaxone Sodium (Rocephin 1 Gram Ivpb) 1 gm in 100 mls @ 100 mls/hr IVPB DAILY [facility] PRN Reason: Protocol Last Admin: 05/06/17 10:27 Dose: 100 mls/hr Metronidazole (Flagyl) 500 mg in 100 mls @ 100 mls/hr IVPB Q8 [facility] PRN Reason: Protocol Last Admin: 05/06/17 05:57 Dose: 100 mls/hr Levothyroxine Sodium (Synthroid) 88 mcg PO DAILY [facility] Last Admin: 05/06/17 10:27 Dose: 88 mcg Metoprolol Tartrate (Lopressor) 75 mg PO BID [facility] Last Admin: 05/06/17 10:25 Dose: 75 mg Morphine Sulfate (Morphine) 2 mg IVP Q4 PRN PRN Reason: Pain, severe (8-10) Ondansetron HCl (Zofran Inj) 4 mg IVP Q6 PRN PRN Reason: Nausea/Vomiting Pantoprazole Sodium (Protonix Inj) 40 mg IVP DAILY [facility] Last Admin: 05/06/17 10:26 Dose: 40 mg - Labs Labs: 05/06/17 08:26 05/06/17 08:26 PT 13.1 SECONDS (9.4-12.5) H 05/06/17 08:26 INR 1.14 (0.93-1.08) H 05/06/17 08:26 APTT 32.8 Seconds (25.1-36.5) 05/06/17 08:26 Attending/Attestation - Attestation I have personally seen and examined this patient.: Yes I have fully participated in the care of the patient.: Yes I have reviewed all pertinent clinical information, including history, physical exam and plan: Yes Notes (Text): 05/06/17 11:00 62 year old female with past medical history of hypertension, hypothyroidism and diverticulitis who presented with complaint of left sided abdominal pain. CT abd/pelvis showed descending and proximal sigmoid diverticulitis. Patient also had slight leukocytosis which has resolved. She is on iv antibiotics and analgesics. Symptoms are slowly improving. Continue with liquid diet and advance as tolerated. Continue with home medications for hypertension and hypothyroidism. Will replete potassium. Possible d/c planning within 24-48 hrs if symptoms continue to improve. Kishor Singer MD Hospitalist.
[2017-05-06] MEDS: Levothyroxine 100 MCG TAB PO SCH (10:27)
[2017-05-06] MEDS: cefTRIAXone 1 gm 1 GM/100 ML BAG IVPB SCH (10:27)
--- NOTE | 2017-05-06 10:54 | CP.PCM.CON ---
<Ward Cruz - Last Filed: 05/06/17 10:54> History of Present Illness - History of Present Illness History of Present Illness: PGY4 Initial GI Note Mari Pruitt is a 62F w/ a hx of diverticulitis who presents to the hospital with complaints of LLQ pain. Pts states that she initially had an episode od acute uncomplicated diverticulitis in Nov 2016. She was subsequently discharged from the hospital on abx and followed as an oupt by PCP. She continued to have mild-mod LLQ pain and was treated with three courses of abx. Over the past 2 weeks, her abd pain has worsened. It has been constant with progressive worsening. Denies any change in stool habits. She had a CT of the Abd in the ED which revealed acute uncomplicated diverticulitis of the decending/sigmoid. She has been on levaquin and flagyl and he pain has slowly improved. She denies any colonoscopy, but notes a EGD 10+ years ago. PMH: HTN, Osteoarthritis, osteoporosis, hypothyroidism PSH: Cholecystectomy, Tubal ligation FH: Non-contributory Social: Denies tobacco/alcohol/illicit drug use, lives at home with her ROS: 12-point ROS conducted, neg other than above Past Patient History - Infectious Disease Hx of Infectious Diseases: None - Tetanus Immunizations Tetanus Immunization: Unknown - Past Social History Smoking Status: Never Smoked - CARDIAC Hx Cardiac Disorders: Yes Hx Hypertension: Yes - PULMONARY Hx Respiratory Disorders: No - NEUROLOGICAL Hx Neurological Disorder: Yes Hx Dizziness: Yes (SYNCOPE,VERTIGO) - HEENT Hx HEENT Problems: No - RENAL Hx Chronic Kidney Disease: No - ENDOCRINE/METABOLIC Hx Endocrine Disorders: Yes Hx Hypothyroidism: Yes - HEMATOLOGICAL/ONCOLOGICAL Hx Blood Disorders: No - INTEGUMENTARY Hx Dermatological Problems: No - MUSCULOSKELETAL/RHEUMATOLOGICAL Hx Musculoskeletal Disorders: Yes Hx Arthritis: Yes Hx Falls: No Hx Osteoporosis: Yes - GASTROINTESTINAL Hx Gastrointestinal Disorders: Yes Hx Gall Bladder Disease: Yes (CHOLECYSTECTOMY) - GENITOURINARY/GYNECOLOGICAL Hx Genitourinary Disorders: No - PSYCHIATRIC Hx Psychophysiologic Disorder: No Hx Substance Use: No - SURGICAL HISTORY Hx Surgeries: Yes (TUBAL LIGATION) Hx Cholecystectomy: Yes - ANESTHESIA Hx Anesthesia: No Hx Anesthesia Reactions: No Hx Malignant Hyperthermia: No Meds Allergies/Adverse Reactions: Allergies Allergy/AdvReac Type Severity Reaction Status Date / Time Iodinated Contrast- Oral and Allergy ANAPHYLAXIS Verified 05/05/17 13:12 IV Dye moxifloxacin [From Avelox] Allergy ANAPHYLAXIS Verified 05/05/17 13:12 - Medications Medications: Current Medications Acetaminophen (Tylenol 325mg Tab) 650 mg PO Q6 PRN PRN Reason: Fever >100.4 F Last Admin: 05/05/17 10:15 Dose: 650 mg Aspirin (Ecotrin) 81 mg PO DAILY [facility] Last Admin: 05/06/17 10:25 Dose: 81 mg Hydrochlorothiazide (Hydrodiuril) 25 mg PO DAILY [facility] Last Admin: 05/06/17 10:28 Dose: 25 mg Ceftriaxone Sodium (Rocephin 1 Gram Ivpb) 1 gm in 100 mls @ 100 mls/hr IVPB DAILY [facility] PRN Reason: Protocol Last Admin: 05/06/17 10:27 Dose: 100 mls/hr Metronidazole (Flagyl) 500 mg in 100 mls @ 100 mls/hr IVPB Q8 [facility] PRN Reason: Protocol Last Admin: 05/06/17 05:57 Dose: 100 mls/hr Levothyroxine Sodium (Synthroid) 88 mcg PO DAILY [facility] Last Admin: 05/06/17 10:27 Dose: 88 mcg Metoprolol Tartrate (Lopressor) 75 mg PO BID [facility] Last Admin: 05/06/17 10:25 Dose: 75 mg Morphine Sulfate (Morphine) 2 mg IVP Q4 PRN PRN Reason: Pain, severe (8-10) Ondansetron HCl (Zofran Inj) 4 mg IVP Q6 PRN PRN Reason: Nausea/Vomiting Pantoprazole Sodium (Protonix Inj) 40 mg IVP DAILY [facility] Last Admin: 05/06/17 10:26 Dose: 40 mg Physical Exam - Constitutional Appears: Well, No Acute Distress - Head Exam Head Exam: ATRAUMATIC, NORMOCEPHALIC - Eye Exam Eye Exam: Normal appearance - ENT Exam ENT Exam: Mucous Membranes Moist, Normal Exam - Neck Exam Neck exam: Positive for: Normal Inspection - Respiratory Exam Respiratory Exam: Clear to Auscultation Bilateral, NORMAL BREATHING PATTERN. absent: Wheezes, Respiratory Distress - Cardiovascular Exam Cardiovascular Exam: REGULAR RHYTHM, +S1, +S2 - GI/Abdominal Exam GI & Abdominal Exam: Normal Bowel Sounds, Soft, Tenderness (LLQ) - Neurological Exam Neurological exam: Alert, Oriented x3 - Psychiatric Exam Psychiatric exam: Normal Affect, Normal Mood - Skin Skin Exam: Dry, Intact, Normal Color, Warm Results - Vital Signs Recent Vital Signs: Last Vital Signs Temp 97.6 F 05/06/17 07:30 Pulse 63 05/06/17 10:25 Resp 18 05/06/17 07:30 BP 124/82 05/06/17 10:25 Pulse Ox 99 05/06/17 07:30 - Labs Result Diagrams: 05/06/17 08:26 05/06/17 08:26 Labs: Laboratory Results - last 24 hr 05/05/17 05/06/17 05/06/17 10:25 08:26 08:26 WBC 7.7 D RBC 4.47 Hgb 13.7 Hct 41.5 MCV 92.8 MCH 30.6 MCHC 33.0 RDW 12.6 Plt Count 280 MPV 9.8 Gran % 62.6 Lymph % (Auto) 28.9 [place] % (Auto) 6.4 H Eos % (Auto) 2.0 Baso % (Auto) 0.1 Gran # 4.81 Lymph # (Auto) 2.2 [place] # (Auto) 0.5 Eos # (Auto) 0.2 Baso # (Auto) 0.01 PT 13.1 H INR 1.14 H APTT 32.8 Sodium Potassium Chloride Carbon Dioxide Anion Gap BUN Creatinine Est GFR ( Amer) Est GFR (Non-Af Amer) Random Glucose Calcium Total Bilirubin AST ALT Alkaline Phosphatase Total Protein Albumin Globulin Albumin/Globulin Ratio Urine Color Yellow Urine Appearance Clear Urine pH 7.5 Ur Specific [place] 1.010 Urine Protein Negative Urine Glucose (UA) Negative Urine Ketones Negative Urine Blood Negative Urine Nitrate Negative Urine Bilirubin Negative Urine Urobilinogen 0.2 Ur Leukocyte Esterase Trace H Urine RBC Negative Urine WBC 0 - 2 Ur Epithelial Cells 0 - 2 05/06/17 08:26 WBC RBC Hgb Hct MCV MCH MCHC RDW Plt Count MPV Gran % Lymph % (Auto) [place] % (Auto) Eos % (Auto) Baso % (Auto) Gran # Lymph # (Auto) [place] # (Auto) Eos # (Auto) Baso # (Auto) PT INR APTT Sodium 144 Potassium 3.4 L Chloride 107 Carbon Dioxide 24 Anion Gap 16 BUN 8 Creatinine 0.7 Est GFR ( Amer) > 60 Est GFR (Non-Af Amer) > 60 Random Glucose 82 Calcium 9.9 Total Bilirubin 1.2 AST 23 ALT 28 Alkaline Phosphatase 65 Total Protein 7.1 Albumin 3.9 Globulin 3.2 Albumin/Globulin Ratio 1.2 Urine Color Urine Appearance Urine pH Ur Specific [place] Urine Protein Urine Glucose (UA) Urine Ketones Urine Blood Urine Nitrate Urine Bilirubin Urine Urobilinogen Ur Leukocyte Esterase Urine RBC Urine WBC Ur Epithelial Cells Assessment & Plan - Assessment and Plan (Free Text) Assessment: Mari Pruitt is a 62F w/ hx of recurrent diverticulitis who presents to the ER with abd pain Acute Non-complicated diverticulitis of decending/sigmoid hx of recurrent diverticulitis Plan: -reviewed CT -advance diet as tolerated to low residue for 1 week then transition to high fiber -complete 10 day course of levaqion and flagyl -pain managment as per primary team -follow-up Dr. Miguel as oupt -colonoscopy in 6-8 weeks D/W Dr. Miguel <Homer Miguel - Last Filed: 05/06/17 11:45> Meds - Medications Medications: Current Medications Acetaminophen (Tylenol 325mg Tab) 650 mg PO Q6 PRN PRN Reason: Fever >100.4 F Last Admin: 05/05/17 10:15 Dose: 650 mg Aspirin (Ecotrin) 81 mg PO DAILY [facility] Last Admin: 05/06/17 10:25 Dose: 81 mg Hydrochlorothiazide (Hydrodiuril) 25 mg PO DAILY [facility] Last Admin: 05/06/17 10:28 Dose: 25 mg Ceftriaxone Sodium (Rocephin 1 Gram Ivpb) 1 gm in 100 mls @ 100 mls/hr IVPB DAILY [facility] PRN Reason: Protocol Last Admin: 05/06/17 10:27 Dose: 100 mls/hr Metronidazole (Flagyl) 500 mg in 100 mls @ 100 mls/hr IVPB Q8 [facility] PRN Reason: Protocol Last Admin: 05/06/17 05:57 Dose: 100 mls/hr Levothyroxine Sodium (Synthroid) 88 mcg PO DAILY [facility] Last Admin: 05/06/17 10:27 Dose: 88 mcg Metoprolol Tartrate (Lopressor) 75 mg PO BID [facility] Last Admin: 05/06/17 10:25 Dose: 75 mg Morphine Sulfate (Morphine) 2 mg IVP Q4 PRN PRN Reason: Pain, severe (8-10) Ondansetron HCl (Zofran Inj) 4 mg IVP Q6 PRN PRN Reason: Nausea/Vomiting Pantoprazole Sodium (Protonix Inj) 40 mg IVP DAILY [facility] Last Admin: 05/06/17 10:26 Dose: 40 mg Results - Vital Signs Recent Vital Signs: Last Vital Signs Temp 97.6 F 05/06/17 07:30 Pulse 63 05/06/17 10:25 Resp 18 05/06/17 07:30 BP 124/82 05/06/17 10:25 Pulse Ox 99 05/06/17 07:30 - Labs Result Diagrams: 05/06/17 08:26 05/06/17 08:26 Labs: Laboratory Results - last 24 hr 05/06/17 05/06/17 05/06/17 08:26 08:26 08:26 WBC 7.7 D RBC 4.47 Hgb 13.7 Hct 41.5 MCV 92.8 MCH 30.6 MCHC 33.0 RDW 12.6 Plt Count 280 MPV 9.8 Gran % 62.6 Lymph % (Auto) 28.9 [place] % (Auto) 6.4 H Eos % (Auto) 2.0 Baso % (Auto) 0.1 Gran # 4.81 Lymph # (Auto) 2.2 [place] # (Auto) 0.5 Eos # (Auto) 0.2 Baso # (Auto) 0.01 PT 13.1 H INR 1.14 H APTT 32.8 Sodium 144 Potassium 3.4 L Chloride 107 Carbon Dioxide 24 Anion Gap 16 BUN 8 Creatinine 0.7 Est GFR ( Amer) > 60 Est GFR (Non-Af Amer) > 60 Random Glucose 82 Calcium 9.9 Total Bilirubin 1.2 AST 23 ALT 28 Alkaline Phosphatase 65 Total Protein 7.1 Albumin 3.9 Globulin 3.2 Albumin/Globulin Ratio 1.2 Attending/Attestation - Attestation I have personally seen and examined this patient.: Yes I have fully participated in the care of the patient.: Yes I have reviewed all pertinent clinical information: Yes Notes (Text): 05/06/17 11:45 62 year old female with h/o recurrent diverticulitis admitted with acute uncomplicated diverticulitis. Recommend 14 day course of antibiotics. Advance diet as tolerated. Recommend outpatient colonoscopy in 6-8 weeks. Will sign off.
[2017-05-06 17:51] VITALS: O2SAT 96
[2017-05-07] MEDS: metroNIDAZOLE IV 500 mg/100 ml 500 MG/100 ML BAG IVPB SCH (06:21)
[2017-05-07 08:29] VITALS: BP 138/94; PULSE 70; RESP 20; TEMP 98
[2017-05-07 08:38] LABS: BASO # 0.01 K/mm3 (0.0-2.0); BASO % 0.2 % (0.0-3.0); EOS # 0.1 (0.0-0.7); EOS % 2.5 % (1.5-5.0); GRAN # 3.36 (1.4-6.5); GRAN % 60.4 % (50.0-68.0); HEMOGLOBIN 13.6 g/dL (12.0-16.0); LYMPH # 1.7 (1.2-3.4); LYMPH % 31.1 % (22.0-35.0); MEAN CELL VOLUME 92.7 fl (80.0-105.0); MEAN CORPUSCULAR HGB CONC 33.4 g/dl (31.0-37.0); MEAN PLATELET VOLUME 9.7 fl (7.0-11.0); MONO # 0.3 (0.1-0.6); MONO % 5.8 % (1.0-6.0); RBC 4.39 10^6/uL (3.5-6.1); RED CELL DISTRIBUTION WIDTH 12.6 % (11.5-14.5); WHITE BLOOD COUNT 5.6 10^3/ul (4.5-11.0)
[2017-05-07] MEDS ORDERED: Potassium Chloride 20 mEq ER Tab PO ONE (09:19)
[2017-05-07 09:24] LABS: ALB/GLOB RATIO 1.3 (1.1-1.8); ALT/SGPT 36 U/L (7-56); AST/SGOT 37 U/L (14-36); BLOOD UREA NITROGEN 7 mg/dL (7-21); CALCIUM 10.4 mg/dL (8.4-10.5); GFR AFRICAN-AMERICAN > 60; GFR NON-AFRICAN AMERICAN > 60
--- NOTE | 2017-05-07 09:26 | CP.PCM.DIS ---
Addendum entered and electronically signed by Lona Craig DO 05/07/17 10:16: per Dr. Miguel's note 14 day antibiotics [id number] BID #[id number] Flagyl 500 mg Q8H #30 Original Note: <Lona Craig - Last Filed: 05/07/17 09:34> Provider - Provider Date of Admission: 05/05/17 06:42 Attending physician: Kishor iSnger MD Primary care physician: Xiomy Negron DO Consults: Dr. Miguel Time Spent in preparation of Discharge (in minutes): 35 Hospital Course - Lab Results Lab Results: Most Recent Lab Values WBC 5.6 10^3/ul (4.5-11.0) D 05/07/17 08:24 RBC 4.39 10^6/uL (3.5-6.1) 05/07/17 08:24 Hgb 13.6 g/dL (12.0-16.0) 05/07/17 08:24 Hct 40.7 % (36.0-48.0) 05/07/17 08:24 MCV 92.7 fl (80.0-105.0) 05/07/17 08:24 MCH 31.0 pg (25.0-35.0) 05/07/17 08:24 MCHC 33.4 g/dl (31.0-37.0) 05/07/17 08:24 RDW 12.6 % (11.5-14.5) 05/07/17 08:24 Plt Count 295 10^3/uL (120.0-450.0) 05/07/17 08:24 MPV 9.7 fl (7.0-11.0) 05/07/17 08:24 Gran % 60.4 % (50.0-68.0) 05/07/17 08:24 Lymph % (Auto) 31.1 % (22.0-35.0) 05/07/17 08:24 [place] % (Auto) 5.8 % (1.0-6.0) 05/07/17 08:24 Eos % (Auto) 2.5 % (1.5-5.0) 05/07/17 08:24 Baso % (Auto) 0.2 % (0.0-3.0) 05/07/17 08:24 Gran # 3.36 (1.4-6.5) 05/07/17 08:24 Lymph # (Auto) 1.7 (1.2-3.4) 05/07/17 08:24 [place] # (Auto) 0.3 (0.1-0.6) 05/07/17 08:24 Eos # (Auto) 0.1 (0.0-0.7) 05/07/17 08:24 Baso # (Auto) 0.01 K/mm3 (0.0-2.0) 05/07/17 08:24 PT 13.1 SECONDS (9.4-12.5) H 05/06/17 08:26 INR 1.14 (0.93-1.08) H 05/06/17 08:26 APTT 32.8 Seconds (25.1-36.5) 05/06/17 08:26 Sodium 144 mmol/L (132-148) 05/06/17 08:26 Potassium 3.4 mmol/L (3.6-5.0) L 05/06/17 08:26 Chloride 107 mmol/L (98-107) 05/06/17 08:26 Carbon Dioxide 24 mmol/L (21-33) 05/06/17 08:26 Anion Gap 16 (10-20) 05/06/17 08:26 BUN 8 mg/dL (7-21) 05/06/17 08:26 Creatinine 0.7 mg/dl (0.7-1.2) 05/06/17 08:26 Est GFR ( Amer) > 60 05/06/17 08:26 Est GFR (Non-Af Amer) > 60 05/06/17 08:26 Random Glucose 82 mg/dL (70-110) 05/06/17 08:26 Calcium 9.9 mg/dL (8.4-10.5) 05/06/17 08:26 Total Bilirubin 1.2 mg/dL (0.2-1.3) 05/06/17 08:26 AST 23 U/L (14-36) 05/06/17 08:26 ALT 28 U/L (7-56) 05/06/17 08:26 Alkaline Phosphatase 65 U/L (38-126) 05/06/17 08:26 Lactate Dehydrogenase 421 U/L (333-699) 05/05/17 05:00 Total Creatine Kinase 62 U/L (35-230) 05/05/17 05:00 Troponin I < 0.01 ng/mL 05/05/17 05:00 Total Protein 7.1 g/dL (5.8-8.3) 05/06/17 08:26 Albumin 3.9 g/dL (3.0-4.8) 05/06/17 08:26 Globulin 3.2 gm/dL 05/06/17 08:26 Albumin/Globulin Ratio 1.2 (1.1-1.8) 05/06/17 08:26 Amylase 50 U/L (35-125) 05/05/17 05:00 Lipase 63 U/L (23-300) 05/05/17 05:00 Urine Color Yellow (YELLOW) 05/05/17 10:25 Urine Appearance Clear (CLEAR) 05/05/17 10:25 Urine pH 7.5 (4.7-8.0) 05/05/17 10:25 Ur Specific [place] 1.010 (1.005-1.035) 05/05/17 10:25 Urine Protein Negative mg/dL (<30 mg/dL) 05/05/17 10:25 Urine Glucose (UA) Negative mg/dL (NEGATIVE) 05/05/17 10:25 Urine Ketones Negative mg/dL (NEGATIVE) 05/05/17 10:25 Urine Blood Negative (NEGATIVE) 05/05/17 10:25 Urine Nitrate Negative (NEGATIVE) 05/05/17 10:25 Urine Bilirubin Negative (NEGATIVE) 05/05/17 10:25 Urine Urobilinogen 0.2 E.U./dL (<1 E.U./dL) 05/05/17 10:25 Ur Leukocyte Esterase Trace [place]/uL (NEGATIVE) H 05/05/17 10:25 Urine RBC Negative /hpf (0-2) 05/05/17 10:25 Urine WBC 0 - 2 /hpf (0-6) 05/05/17 10:25 Ur Epithelial Cells 0 - 2 /hpf (0-5) 05/05/17 10:25 - Hospital Course Hospital Course: 62 F with past medical history that includes HTN, Osteoarthritis, osteoporosis, and hypothyroidism present to [facility] ED for complaint of abdominal pain. Patient states that she has had this pain for about 2 weeks and has gotten progressively worse over last 3 days. Patient states that she has had similar pain in the past. She intermittent experiences abdominal pain. She has extensive history of diverticulosis throughout her entire colon. Patient was admitted in October 2016 for ascending colon diverticulitis. Patient never followed up with Gastroenterology for colonoscopy after discharge. Patient rates pain as severe intensity. She describes pain as constant and sharp located in abdomen bilaterally (Left worse right) with radiation to left flank. Patient reports that eating/drinking/palpation exacerbates pain while nothing specifically alleviates her pain. She does not report any sick contacts or recent illnesses. Admits to chills. Denies fever, chest pain, SOB, nausea/ vomiting, diarrhea, constipation, incontinence, urinary symptoms. PMD: Dr. Negron Patient was found to have descending and sigmoid diverticulitis Patient was restsarted on home medication. Patient was given antibiotics Rocephin 1 gm IVPB daily, Flagyl 500 mg IVPB Q8H, pain medication Morphine 2 mg IVP Q4H PRN and fluids during her stay. GI consult Dr. Miguel saw patient instructed to advance diet to low residue for 1 week and transition to high fiber diet. Finish 10 days of antibiotics, follow-up Dr. Miguel as oupatient and repeat colonoscopy in 6-8 weeks. Patient discharged on Ciprofloxacin 750mg PO BID plus metronidazole 500mg PO QID with information on low fiber foods for one week and high fiber food diet information - Date & Time of H&P Date of H&P: 05/07/17 Time of H&P: 09:20 Discharge Exam - Head Exam Head Exam: ATRAUMATIC, NORMOCEPHALIC - Eye Exam Eye Exam: EOMI, Normal appearance Pupil Exam: NORMAL ACCOMODATION, PERRL - ENT Exam ENT Exam: Mucous Membranes Moist - Neck Exam Additional comments: decreased range of motion - Respiratory Exam Respiratory Exam: Clear to PA & Lateral, NORMAL BREATHING PATTERN. absent: Accessory Muscle Use, UNREMARKABLE - Cardiovascular Exam Cardiovascular Exam: REGULAR RHYTHM, +S1, +S2. absent: Bradycardia, Tachycardia - GI/Abdominal Exam GI & Abdominal Exam: Normal Bowel Sounds, Soft. absent: Organomegaly, Pulsatile Mass, Rigid, Tenderness - Extremities Exam Extremities exam: full ROM - Back Exam Back exam: FULL ROM - Neurological Exam Neurological exam: Alert, CN II-XII Intact, Normal Gait, Oriented x3 - Psychiatric Exam Psychiatric exam: Normal Affect, Normal Mood - Skin Skin Exam: Dry, Intact, Normal Color, Warm Discharge Plan - Discharge Medications Prescriptions: Ciprofloxacin HCl [Cipro] 500 mg PO BID #20 tab Metronidazole [Flagyl] 500 mg PO Q8H #30 tablet - Follow Up Plan Condition: GOOD Disposition: HOME/ ROUTINE Instructions: High Blood Pressure in Adults, High Fiber Diet, Low Fiber Diet, Flu, Adult (DC), Acute Abdomen (Belly Pain), Adult (DC) Additional Instructions: [id number] BID #20 Flagyl 500 mg Q8H #30 follow-up Dr. Miguel as outpatient and repeat colonoscopy in 6-8 weeks. Referrals: Xiomy Negron DO [Primary Care Provider] - <Kishor Singer - Last Filed: 05/07/17 12:51> Provider - Provider Date of Admission: 05/05/17 06:42 Attending physician: Kishor Singer MD Primary care physician: Xiomy Negron DO Hospital Course - Lab Results Lab Results: Most Recent Lab Values WBC 5.6 10^3/ul (4.5-11.0) D 05/07/17 08:24 RBC 4.39 10^6/uL (3.5-6.1) 05/07/17 08:24 Hgb 13.6 g/dL (12.0-16.0) 05/07/17 08:24 Hct 40.7 % (36.0-48.0) 05/07/17 08:24 MCV 92.7 fl (80.0-105.0) 05/07/17 08:24 MCH 31.0 pg (25.0-35.0) 05/07/17 08:24 MCHC 33.4 g/dl (31.0-37.0) 05/07/17 08:24 RDW 12.6 % (11.5-14.5) 05/07/17 08:24 Plt Count 295 10^3/uL (120.0-450.0) 05/07/17 08:24 MPV 9.7 fl (7.0-11.0) 05/07/17 08:24 Gran % 60.4 % (50.0-68.0) 05/07/17 08:24 Lymph % (Auto) 31.1 % (22.0-35.0) 05/07/17 08:24 [place] % (Auto) 5.8 % (1.0-6.0) 05/07/17 08:24 Eos % (Auto) 2.5 % (1.5-5.0) 05/07/17 08:24 Baso % (Auto) 0.2 % (0.0-3.0) 05/07/17 08:24 Gran # 3.36 (1.4-6.5) 05/07/17 08:24 Lymph # (Auto) 1.7 (1.2-3.4) 05/07/17 08:24 [place] # (Auto) 0.3 (0.1-0.6) 05/07/17 08:24 Eos # (Auto) 0.1 (0.0-0.7) 05/07/17 08:24 Baso # (Auto) 0.01 K/mm3 (0.0-2.0) 05/07/17 08:24 PT 13.1 SECONDS (9.4-12.5) H 05/06/17 08:26 INR 1.14 (0.93-1.08) H 05/06/17 08:26 APTT 32.8 Seconds (25.1-36.5) 05/06/17 08:26 Sodium 145 mmol/L (132-148) 05/07/17 08:24 Potassium 3.3 mmol/L (3.6-5.0) L 05/07/17 08:24 Chloride 103 mmol/L (98-107) 05/07/17 08:24 Carbon Dioxide 28 mmol/L (21-33) 05/07/17 08:24 Anion Gap 17 (10-20) 05/07/17 08:24 BUN 7 mg/dL (7-21) 05/07/17 08:24 Creatinine 0.7 mg/dl (0.7-1.2) 05/07/17 08:24 Est GFR ( Amer) > 60 05/07/17 08:24 Est GFR (Non-Af Amer) > 60 05/07/17 08:24 Random Glucose 108 mg/dL (70-110) 05/07/17 08:24 Calcium 10.4 mg/dL (8.4-10.5) 05/07/17 08:24 Total Bilirubin 0.7 mg/dL (0.2-1.3) 05/07/17 08:24 AST 37 U/L (14-36) H D 05/07/17 08:24 ALT 36 U/L (7-56) 05/07/17 08:24 Alkaline Phosphatase 66 U/L (38-126) 05/07/17 08:24 Lactate Dehydrogenase 421 U/L (333-699) 05/05/17 05:00 Total Creatine Kinase 62 U/L (35-230) 05/05/17 05:00 Troponin I < 0.01 ng/mL 05/05/17 05:00 Total Protein 7.1 g/dL (5.8-8.3) 05/07/17 08:24 Albumin 4.0 g/dL (3.0-4.8) 05/07/17 08:24 Globulin 3.1 gm/dL 05/07/17 08:24 Albumin/Globulin Ratio 1.3 (1.1-1.8) 05/07/17 08:24 Amylase 50 U/L (35-125) 05/05/17 05:00 Lipase 63 U/L (23-300) 05/05/17 05:00 Urine Color Yellow (YELLOW) 05/05/17 10:25 Urine Appearance Clear (CLEAR) 05/05/17 10:25 Urine pH 7.5 (4.7-8.0) 05/05/17 10:25 Ur Specific [place] 1.010 (1.005-1.035) 05/05/17 10:25 Urine Protein Negative mg/dL (<30 mg/dL) 05/05/17 10:25 Urine Glucose (UA) Negative mg/dL (NEGATIVE) 05/05/17 10:25 Urine Ketones Negative mg/dL (NEGATIVE) 05/05/17 10:25 Urine Blood Negative (NEGATIVE) 05/05/17 10:25 Urine Nitrate Negative (NEGATIVE) 05/05/17 10:25 Urine Bilirubin Negative (NEGATIVE) 05/05/17 10:25 Urine Urobilinogen 0.2 E.U./dL (<1 E.U./dL) 05/05/17 10:25 Ur Leukocyte Esterase Trace Cirilo/uL (NEGATIVE) H 05/05/17 10:25 Urine RBC Negative /hpf (0-2) 05/05/17 10:25 Urine WBC 0 - 2 /hpf (0-6) 05/05/17 10:25 Ur Epithelial Cells 0 - 2 /hpf (0-5) 05/05/17 10:25 Attending/Attestation - Attestation I have personally seen and examined this patient.: Yes I have fully participated in the care of the patient.: Yes I have reviewed all pertinent clinical information, including history, physical exam and plan: Yes Notes (Text): 05/07/17 12:48 62 year old female with past medical history of hypertension, hypothyroidism and diverticulitis who presented with complaint of left sided abdominal pain secondary to descending and proximal sigmoid diverticulitis as seen on CT scan. She was started on iv antibiotics with improvement of symptoms. She was seen by GI. Diet was advanced as tolerated. Overall patients symptoms have improved. Patient is discharged home to follow up with pmd. Follow up with GI for elective colonoscopy x 6-8 weeks. Continue with po antibiotics to complete 14 days. Continue with home medications for hypertension and hypothyroidism. Kishor Singer MD Hospitalist.
[2017-05-07] MEDS: Levothyroxine 100 MCG TAB PO SCH (09:42)
[2017-05-07] MEDS: cefTRIAXone 1 gm 1 GM/100 ML BAG IVPB SCH (09:42)
== END 2017-05-07 15:00 | disposition home or self-care (01) | DRG 183 ==
LOC: ED 04:35 → ERH 06:42 → 5RNO 08:06
PROVIDERS: ADMIT Internal Medicine; ATTEND Internal Medicine
DX: K57.32 Diverticulitis of large intestine without perforation or abscess without bleeding (principal); E03.9 Hypothyroidism, unspecified; I10 Essential (primary) hypertension; M81.0 Age-related osteoporosis without current pathological fracture; M19.90 Unspecified osteoarthritis, unspecified site; Z79.82 Long term (current) use of aspirin

== ENCOUNTER 2017-05-24 20:45 | Emergency (ER) | payer MEDICAID ==
[2017-05-24 20:57] VITALS: RESP 18; TEMP 97.8; BMI 24.4
--- NOTE | 2017-05-24 21:46 | ED PDOC ---
Arrival/HPI - General Chief Complaint: Lower Extremity Problem/Injury Time Seen by Provider: 05/24/17 20:56 Historian: Patient - History of Present Illness Narrative History of Present Illness (Text): 05/24/17 21:43 A 62 year old female presents to the emergency department complaining of right hip pain for 2 days. Patient describes the pain as a sharp sensation that radiates down her leg. Patient is able to ambulate without difficulty. Patient denies any recent trauma, fever, chills, nausea, vomiting, abdominal pain, chest pain, shortness of breath or any other complaints. Time/Duration: Other (2 days) Symptom Course: Unchanged Quality: Other (sharp) Context: Home Past Medical History - Provider Review Nursing Documentation Reviewed: Yes - Infectious Disease Hx of Infectious Diseases: None - Tetanus Immunization Tetanus Immunization: Unknown - Reproductive Menopause: Yes - Cardiac Hx Cardiac Disorders: Yes Hx Hypertension: Yes - Pulmonary Hx Respiratory Disorders: No - Neurological Hx Neurological Disorder: No - HEENT Hx HEENT Disorder: No - Renal Hx Renal Disorder: No - Endocrine/Metabolic Hx Endocrine Disorders: Yes Hx Hypothyroidism: Yes - Hematological/Oncological Hx Blood Disorders: No - Integumentary Hx Dermatological Disorder: No - Musculoskeletal/Rheumatological Hx Musculoskeletal Disorders: Yes Hx Arthritis: Yes Hx Osteoporosis: Yes - Gastrointestinal Hx Gastrointestinal Disorders: No - Genitourinary/Gynecological Hx Genitourinary Disorders: No - Psychiatric Hx Psychophysiologic Disorder: No Hx Substance Use: No - Past Surgical History Past Surgical History: No Previous - Surgical History Hx Cholecystectomy: Yes Hx Tubal Ligation: Yes - Anesthesia Hx Anesthesia: No Hx Anesthesia Reactions: No Hx Malignant Hyperthermia: No - Suicidal Assessment Feels Threatened In Home Enviroment: No Family/Social History - Physician Review Nursing Documentation Reviewed: Yes Family/Social History: No Known Family HX Smoking Status: Never Smoked Hx Alcohol Use: No Hx Substance Use: No Hx Substance Use Treatment: No Allergies/Home Meds Allergies/Adverse Reactions: Allergies Iodinated Contrast- Oral and IV Dye Allergy (Verified 05/05/17 13:12) ANAPHYLAXIS moxifloxacin [From Avelox] Allergy (Verified 05/05/17 13:12) ANAPHYLAXIS Home Medications: Home Meds Medication Instructions Recorded Confirmed Aspirin [Adult Low Dose Aspirin EC] 81 mg PO DAILY 10/08/16 05/05/17 Levothyroxine [Synthroid] 88 mcg PO DAILY 10/08/16 05/05/17 Metoprolol Tartrate [Lopressor] 75 mg PO BID 10/08/16 05/06/17 hydroCHLOROthiazide [Hydrodiuril] 25 mg PO DAILY 10/08/16 05/05/17 Review of Systems - Physician Review All systems were reviewed & negative as marked: Yes - Review of Systems Constitutional: absent: Fevers, Night Sweats Respiratory: absent: SOB Cardiovascular: absent: Chest Pain Gastrointestinal: absent: Abdominal Pain, Nausea, Vomiting Musculoskeletal: Other (right hip pain radiating down leg) Physical Exam Vital Signs Reviewed: Yes Vital Signs Temp Pulse Resp BP Pulse Ox 05/24/17 20:52 97.8 F 74 18 171/107 H 96 Temperature: Afebrile Blood Pressure: Hypertensive Pulse: Regular Respiratory Rate: Normal Appearance: Positive for: Well-Appearing, Non-Toxic, Comfortable Pain Distress: None Mental Status: Positive for: Alert and Oriented X 3 - Systems Exam Head: Present: Atraumatic, Normocephalic Pupils: Present: PERRL Extroacular Muscles: Present: EOMI Conjunctiva: Present: Normal Mouth: Present: Moist Mucous Membranes Respiratory/Chest: Present: Clear to Auscultation, Good Air Exchange. No: Respiratory Distress, Accessory Muscle Use Cardiovascular: Present: Regular Rate and Rhythm, Normal S1, S2. No: Murmurs Abdomen: Present: Normal Bowel Sounds. No: Tenderness, Distention, Peritoneal Signs Upper Extremity: Present: Normal Inspection. No: Cyanosis, Edema Lower Extremity: Present: Normal Inspection, NORMAL PULSES, Normal ROM, Neurovascularly Intact. No: Edema, CALF TENDERNESS, Tenderness, Swelling, Erythema, Deformity, Temperature Abnormalties Neurological: Present: GCS=15, CN II-XII Intact, Speech Normal Skin: Present: Warm, Dry, Normal Color. No: Rashes Psychiatric: Present: Alert, Oriented x 3, Normal Insight, Normal Concentration Medical Decision Making ED Course and Treatment: 05/24/17 21:43 Impression: A 62 year old female with right hip pain radiating down leg Differential Diagnosis included but are not limited to: Sprain Plan: -- Right hip xray -- Reassess and disposition Progress Notes: - RAD Interpretation Radiology Orders: 05/24/17 21:16 Hip Right [HIP MIN 2V W/ PELVIS RT] [RAD] Stat Disposition/Present on Arrival - Present on Arrival Any Indicators Present on Arrival: No History of DVT/PE: No History of Uncontrolled Diabetes: No Urinary Catheter: No History of Decub. Ulcer: No History Surgical Site Infection Following: None - Disposition Have Diagnosis and Disposition been Completed?: Yes Diagnosis: Hip pain Disposition: HOME/ ROUTINE Disposition Time: 21:45 Patient Problems: Current Active Problems Problem Status Onset Hip pain Acute Condition: GOOD Discharge Instructions (ExitCare): Hip Pain (DC) Print Language: ESTONIAN Additional Instructions: Thank you for letting us take care of you today. The emergency medical care you received today was directed at your acute symptoms. If you were prescribed any medication, please fill it and take as directed. It may take several days for your symptoms to resolve. Return to the Emergency Department if your symptoms worsen, do not improve, or if you have any other problems. Please contact your doctor or call one of the physicians/clinics you have been referred to that are listed on the Patient Visit Information form that is included in your discharge packet. Bring any paperwork you were given at discharge with you along with any medications you are taking to your follow up visit. Our treatment cannot replace ongoing medical care by a primary care provider (PCP) outside of the emergency department. Thank you for allowing the [facility] team to be part of your care today. Follow up with your primary care doctor in 2-3 days for re-evaluation and further management. Vince por dejarnos atenderlo hoy. La atencin mdica de emergencia que recibi hoy estaba dirigida a annalise sntomas agudos. Si le prescribieron algn medicamento, llnelo y tome segn las indicaciones. Annalise sntomas pueden tardar varios alejandre en resolverse. Regrese al Departamento de Emergencia si annalise s ntomas empeoran, no mejoran o si tiene algn otro problema. Comunquese con olivas mdico o llame a jeff de los mdicos / clnicas a los que rothman sido referido que figura en el formulario de Informacin de visita del paciente que se incluye en olivas paquete de juan miguel. Traiga todos los documentos que recibi al momento del juan miguel junto con los medicamentos que est tomando en olivas visita de seguimiento. Nuestro tratamiento no puede reemplazar la atencin mdica en curso por parte de un proveedor de atencin primaria (PCP) fuera del departamento de emergencias. Vince por permitir que el equipo de [facility] sea parte de olivas cuidado hoy. Nilay un seguimiento con olivas mdico de atencin primaria en 2-3 alejandre para jazmín nueva evaluacin y administracin adicional. Prescriptions: Ibuprofen [Motrin] 600 mg PO Q6 PRN #20 tab PRN Reason: Pain, Moderate (4-7) Referrals: Xiomy Negron DO [Primary Care Provider] - Follow up with primary Forms: Custora (Italian)
[2017-05-24 22:24] VITALS: BP 142/99; PULSE 62; O2SAT 100
--- NOTE | 2017-05-25 08:11 | RAD ---
PROCEDURE: Right Hip and pelvis Radiographs. HISTORY: hip pain r/o fx COMPARISON: None. FINDINGS: BONES: Normal. No fracture. JOINTS: Normal. SOFT TISSUES: Normal. OTHER FINDINGS: None. IMPRESSION: Negative study
== END 2017-05-24 22:00 | disposition home or self-care (01) ==
LOC: ED 20:45
DX: M25.551 Pain in right hip (principal); I10 Essential (primary) hypertension; E03.9 Hypothyroidism, unspecified

== ENCOUNTER 2017-12-15 14:23 | Emergency (ER) | payer MEDICAID ==
[2017-12-15 14:24] VITALS: BMI 26.9
[2017-12-15 14:54] VITALS: RESP 18; TEMP 98.7; O2SAT 99
--- NOTE | 2017-12-15 15:43 | CT ---
Date of service: 12/15/2017 PROCEDURE: CT Abdomen and Pelvis without intravenous contrast HISTORY: LLQ abd pain, allergy to iv contrast, hx divertic COMPARISON: None. TECHNIQUE: Without contrast.. Contrast dose: Radiation dose: Total exam DLP = 522 mGy-cm. This CT exam was performed using one or more of the following dose reduction techniques: Automated exposure control, adjustment of the mA and/or kV according to patient size, and/or use of iterative reconstruction technique. FINDINGS: LOWER THORAX: Unremarkable. LIVER: Unremarkable. No gross lesion or ductal dilatation. GALLBLADDER AND BILE DUCTS: Gallbladder removed PANCREAS: Unremarkable. No gross lesion or ductal dilatation. SPLEEN: Unremarkable. ADRENALS: Unremarkable. No mass. KIDNEYS AND URETERS: Unremarkable. No hydronephrosis. No solid mass. VASCULATURE: Unremarkable. No aortic aneurysm. BOWEL: Minimal inflammatory changes are seen around the descending colon near the junction with the sigmoid colon. There is diverticulosis. Findings consistent with mild diverticulitis APPENDIX: Unremarkable. Normal appendix. PERITONEUM: Unremarkable. No free fluid. No free air. LYMPH NODES: Mildly enlarged mesenteric lymph nodes in the left lower quadrant BLADDER: Unremarkable. REPRODUCTIVE: Unremarkable. BONES: No acute fracture. OTHER FINDINGS: None. IMPRESSION: Mild diverticulitis at the junction of the descending and sigmoid colon.
[2017-12-15 15:45] LABS: ALB/GLOB RATIO 1.4 (1.1-1.8); ALBUMIN 4.5 g/dL (3.0-4.8); ALT/SGPT 43 U/L (7-56); AST/SGOT 44 U/L (14-36); BLOOD UREA NITROGEN 8 mg/dL (7-21); CALCIUM 9.7 mg/dL (8.4-10.5); GFR NON-AFRICAN AMERICAN > 60; LIPASE 80 U/L (23-300)
--- NOTE | 2017-12-15 15:52 | ED PDOC ---
Arrival/HPI - General Chief Complaint: Abdominal Pain Time Seen by Provider: 12/15/17 14:27 Historian: Patient - History of Present Illness Narrative History of Present Illness (Text): 12/15/17 15:48 A 62 year old female, whose past medical history includes HTN, Osteoarthritis, osteoporosis, and hypothyroidism, and cholecystectomy, presents to the emergency department complaining of diffuse abdominal pain, mainly in to the left abdomen. The patient notes that her symptoms feel similar to previous complaints for which she has been admitted. The patient states that she was supposed to get an Abdomen/Pelvis CT today, but was never contacted by her PMD for an appointment. The patient states that she could not take the pain, so she decided to come get evaluated in the emergency department. SHe complains of constipation 2 days ago and diarrhea yesterday. The patient denies fevers, chills, headache, dizziness, sore throat, cough, chest pain, shortness of breath, dyspnea on exertion, vomiting, neck/back pain, urinary changes or any other complaint. PMD: Dr. Negron Time/Duration: Other (Several Days) Symptom Onset: Sudden Symptom Course: Unchanged Activities at Onset: Rest, Light Context: Home Past Medical History - Provider Review Nursing Documentation Reviewed: Yes - Infectious Disease Hx of Infectious Diseases: None - Tetanus Immunization Tetanus Immunization: Unknown - Reproductive Menopause: Yes - Cardiac Hx Cardiac Disorders: Yes Hx Hypertension: Yes - Pulmonary Hx Respiratory Disorders: No - Neurological Hx Neurological Disorder: No - HEENT Hx HEENT Disorder: No - Renal Hx Renal Disorder: No - Endocrine/Metabolic Hx Endocrine Disorders: Yes Hx Hypothyroidism: Yes - Hematological/Oncological Hx Blood Disorders: No - Integumentary Hx Dermatological Disorder: No - Musculoskeletal/Rheumatological Hx Musculoskeletal Disorders: Yes - Gastrointestinal Hx Gastrointestinal Disorders: No - Genitourinary/Gynecological Hx Genitourinary Disorders: No - Psychiatric Hx Psychophysiologic Disorder: No Hx Substance Use: No - Past Surgical History Past Surgical History: No Previous - Surgical History Hx Cholecystectomy: Yes Hx Tubal Ligation: Yes - Anesthesia Hx Anesthesia Reactions: No Hx Malignant Hyperthermia: No - Suicidal Assessment Feels Threatened In Home Enviroment: No Family/Social History - Physician Review Nursing Documentation Reviewed: Yes Family/Social History: No Known Family HX Smoking Status: Never Smoked Hx Alcohol Use: No Hx Substance Use: No Hx Substance Use Treatment: No Allergies/Home Meds Allergies/Adverse Reactions: Allergies Iodinated Contrast- Oral and IV Dye Allergy (Verified 06/21/17 16:02) ANAPHYLAXIS moxifloxacin [From Avelox] Allergy (Verified 06/21/17 16:02) ANAPHYLAXIS Home Medications: Home Meds Medication Instructions Recorded Confirmed Aspirin [Adult Low Dose Aspirin EC] 81 mg PO DAILY 10/08/16 12/15/17 Levothyroxine [Synthroid] 88 mg PO DAILY 10/08/16 12/15/17 Metoprolol Tartrate [Lopressor] 100 mg PO BID 10/08/16 12/15/17 hydroCHLOROthiazide [Hydrodiuril] 25 mg PO DAILY 10/08/16 12/15/17 Meclizine HCl [Motion Sickness II] 25 mg PO BID 06/21/17 12/15/17 Review of Systems - Physician Review All systems were reviewed & negative as marked: Yes - Review of Systems Constitutional: absent: Fevers ENT: absent: Sore Throat Respiratory: absent: SOB, Cough Cardiovascular: absent: Chest Pain, FORD Gastrointestinal: Abdominal Pain, Constipation, Diarrhea. absent: Nausea, Vomiting Musculoskeletal: absent: Back Pain, Neck Pain Neurological: absent: Headache, Dizziness Physical Exam Vital Signs Reviewed: Yes Vital Signs Temp Pulse Resp BP Pulse Ox 12/15/17 15:00 98.7 F 66 18 153/93 H 99 12/15/17 14:44 98.7 F 66 18 153/93 H 99 Temperature: Afebrile Blood Pressure: Hypertensive Pulse: Regular Respiratory Rate: Normal Appearance: Positive for: Well-Appearing, Non-Toxic, Comfortable Pain Distress: None Mental Status: Positive for: Alert and Oriented X 3 - Systems Exam Head: Present: Atraumatic, Normocephalic Pupils: Present: PERRL Extroacular Muscles: Present: EOMI Conjunctiva: Present: Normal Mouth: Present: Moist Mucous Membranes Neck: Present: Normal Range of Motion Respiratory/Chest: Present: Clear to Auscultation, Good Air Exchange. No: Respiratory Distress, Accessory Muscle Use Cardiovascular: Present: Regular Rate and Rhythm, Normal S1, S2. No: Murmurs Abdomen: Present: Tenderness (Left lower quadrant tenderness.). No: Distention, Peritoneal Signs Back: Present: Normal Inspection Upper Extremity: Present: Normal Inspection. No: Cyanosis, Edema Lower Extremity: Present: Normal Inspection. No: Edema Neurological: Present: GCS=15, CN II-XII Intact, Speech Normal Skin: Present: Warm, Dry, Normal Color. No: Rashes Psychiatric: Present: Alert, Oriented x 3, Normal Insight, Normal Concentration Medical Decision Making ED Course and Treatment: 12/15/17 15:52 Impression: A 62 year old female presents to the emergency department with a complaint of several day duration left lower quadrant abdominal pain. Hx of diverticulitis, will CT given hx. No vaginal d/c or rashes. Plan: -- Abdomen/Pelvis CT -- EKG -- Urinalysis -- Labs -- Reassess and disposition Prior Visits: Notes and results from previous visits were reviewed. Progress Notes: 12/15/17 16:00 Procedure: CT Abdomen and Pelvis without intravenous contrast Impression: Mild diverticulitis at the junction of the descending and sigmoid colon. Dictator: Gary Rosenberg MD 12/15/17 17:05 mild diverticulitis, uti w/ squams labs otherwise unremarkable pain improved, no peritoneal signs clear for d/c - Lab Interpretations Lab Results: 12/15/17 15:30 Lab Results 12/15/17 15:30: Sodium 140, Potassium 3.6, Chloride 101, Carbon Dioxide 29, Anion Gap 13, BUN 8, Creatinine 0.8, Est GFR ( Amer) > 60, Est GFR (Non- Af Amer) > 60, Random Glucose 86, Calcium 9.7, Total Bilirubin 1.0, AST 44 H, ALT 43, Alkaline Phosphatase 77, Total Protein 7.7, Albumin 4.5, Globulin 3.2, Albumin/Globulin Ratio 1.4, Lipase 80 I have reviewed the lab results: Yes - RAD Interpretation Radiology Orders: 12/15/17 15:05 ABD & PELVIS W/O PO OR IV CONT [CT] Stat - EKG Interpretation Interpreted by ED Physician: Yes Type: 12 lead EKG - Scribe Statement The provider has reviewed the documentation as recorded by the Adriano Diaz Provider Scribe Attestation: All medical record entries made by the Scribe were at my direction and personall y dictated by me. I have reviewed the chart and agree that the record accurately reflects my personal performance of the history, physical exam, medical decision making, and the department course for this patient. I have also personally directed, reviewed, and agree with the discharge instructions and disposition. Disposition/Present on Arrival - Present on Arrival Any Indicators Present on Arrival: No History of DVT/PE: No History of Uncontrolled Diabetes: No Urinary Catheter: No History of Decub. Ulcer: No History Surgical Site Infection Following: None - Disposition Have Diagnosis and Disposition been Completed?: Yes Diagnosis: Diverticulitis, UTI (urinary tract infection) Disposition: HOME/ ROUTINE Disposition Time: 16:30 Condition: GOOD Discharge Instructions (ExitCare): Urinary Tract Infection, Adult (DC), Diverticulitis (DC) Print Language: NEPALESE Prescriptions: Metronidazole [Flagyl] 500 mg PO TID 12 Days #36 tablet Sulfamethoxazole/Trimethoprim [Bactrim DS 800 mg-160 mg] 1 tab PO BID 12 Days #24 tab Referrals: Ashtyn Mejia MD [Medical Doctor] - Follow up with primary Gloria Cornell MD [Medical Doctor] - Follow up with primary Forms: [employer]Ogave (Mohawk)
[2017-12-15 15:57] LABS: URINE BILIRUBIN NEGATIVE (NEGATIVE); URINE BLOOD NEGATIVE (NEGATIVE); URINE GLUCOSE (UA) NEGATIVE (NEGATIVE); URINE LEUKOCYTE ESTERASE SMALL Leu/uL (NEGATIVE); URINE PROTEIN NEGATIVE mg/dL (<30 mg/dL); URINE UROBILINOGEN 0.2 E.U./dL (<1 E.U./dL)
[2017-12-15 15:58] LABS: BASO # 0.01 K/mm3 (0.0-2.0); BASO % 0.1 % (0.0-3.0); EOS # 0.2 (0.0-0.7); EOS % 2.6 % (1.5-5.0); GRAN # 3.55 (1.4-6.5); GRAN % 52.1 % (50.0-68.0); HEMOGLOBIN 14.8 g/dL (12.0-16.0); LYMPH # 2.6 (1.2-3.4); LYMPH % 37.7 % (22.0-35.0); MEAN CELL VOLUME 90.5 fl (80.0-105.0); MEAN CORPUSCULAR HEMOGLOBIN 30.6 pg (25.0-35.0); MEAN CORPUSCULAR HGB CONC 33.9 g/dl (31.0-37.0); MEAN PLATELET VOLUME 9.5 fl (7.0-11.0); MONO # 0.5 (0.1-0.6); MONO % 7.5 % (1.0-6.0); RBC 4.83 10^6/uL (3.5-6.1); RED CELL DISTRIBUTION WIDTH 12.1 % (11.5-14.5); WHITE BLOOD COUNT 6.8 10^3/ul (4.5-11.0)
[2017-12-15 16:01] LABS: URINE APPEARANCE CLEAR (CLEAR); URINE COLOR STRAW (YELLOW)
[2017-12-15 16:05] LABS: URINE BACTERIA TRACE (NEG)
[2017-12-15 17:26] VITALS: BP 143/95; PULSE 70
--- NOTE | 2017-12-15 18:52 | CARD ---
APPROVED REPORT Date of service: 12/15/2017 EKG Measurement Heart [id number] <Conclusion> Normal sinus rhythm Nonspecific ST and T wave abnormality
== END 2017-12-15 17:26 | disposition home or self-care (01) ==
LOC: ED 14:23
DX: K57.92 Diverticulitis of intestine, part unspecified, without perforation or abscess without bleeding (principal); N39.0 Urinary tract infection, site not specified